=== PATIENT | male | born 1970 | race American Indian/Alaskan Native ===

== ENCOUNTER 2021-02-03 12:44 | Inpatient (IN) | payer MEDICARE ==
[2021-02-03] MEDS ORDERED: VANCOMYCIN 1,750 MG in SODIUM CHLORIDE 0.9% 500 ML 500 ML IV ONE (13:15)
[2021-02-03] MEDS ORDERED: SODIUM CHLORIDE 0.9% 1000 ML IV SOLN IV ONE (13:15)
[2021-02-03] MEDS ORDERED: CEFEPIME/NS 2 GM/100 ML 2 GM/100 ML BAG IV ONE (13:15)
[2021-02-03] MEDS ORDERED: PANTOPRAZOLE 40 MG INJ IV ONE (13:19)
--- NOTE | 2021-02-03 13:24 | Emergency Department Report ---
ED Fever HPI - General Chief Complaint: GI Bleed Stated Complaint: POSS SEPSIS PUI?: Yes Time Seen by Provider: 02/03/21 13:08 Source: EMS Exam Limitations: language barrier - History of Present Illness Initial Comments: CC: black emesis HPI: hx obtained from EMS THis is a 50 yo male with hx of CVA, HTN, schizophrenia, chronic hiccups, developmental delay who presents with black emesis from personal fpc. Due to baseline mental status, patient gives limited hx. Black emesis began yesterday. Patient was too weak to walk for the past 2 days. EMS noted patient to be febrile 102 F, oxygen saturation 91% RA. On arrival patient is hypotensive 88/62 Patient is minimally verbal at baseline. According to documentation provided to EMS patient was admitted January 16, 2021 at [facility] Hx obtained from caregiver at [facility] Ninfa [phone] Patient has been a resident of [facility] since October 2020. I obtained history from Dr. Briggs tax examiner. He had access to patient's record at [facility]. He underwent EGD which diagnosed esophagitis during recent hospitalization. Fever Severity/Quality: greater than 102 F Associated Symptoms: other (black emesis) ED Review of Systems ROS: Stated complaint: POSS SEPSIS Other details as noted in HPI Comment: Unobtainable due to pts medical conditions (patient has minimal language capacity, critically ill) ED Past Medical Hx - Past Medical History Previous Medical History?: Yes Hx Hypertension: Yes Hx CVA: Yes Hx Psychiatric Treatment: Yes Additional medical history: schizophrenia - Social History Smoking Status: Never Smoker ED Physical Exam - General Limitations: No Limitations General appearance: lethargic, other (appears ill, makes eye contact, constant hiccups) - Head Head exam: Present: atraumatic, normocephalic - Eye Eye exam: Present: normal appearance - ENT ENT exam: Present: mucous membranes dry - Neck Neck exam: Present: normal inspection, full ROM - Respiratory Respiratory exam: Present: decreased breath sounds, other (rapid breathing). A bsent: wheezes, rales, rhonchi, stridor - Cardiovascular Cardiovascular Exam: Present: normal rhythm, tachycardia, normal heart sounds. Absent: systolic murmur, diastolic murmur, rubs, gallop - GI/Abdominal GI/Abdominal exam: Present: soft, normal bowel sounds. Absent: distended, tenderness, guarding, rebound - Rectal Rectal exam: Present: heme (+) stool (light brown stool) - Extremities Exam Extremities exam: Present: normal inspection - Neurological Exam Neurological exam: Present: altered - Psychiatric Psychiatric exam: Present: flat affect - Skin Skin exam: Present: dry, intact, normal color, other (hot to touch). Absent: rash ED Course Vital Signs 02/03/21 02/03/21 02/03/21 13:00 13:12 13:16 Temperature 102.8 F H Pulse Rate 111 H 118 H Respiratory 24 23 Rate Blood Pressure 90/64 96/63 O2 Sat by Pulse 99 99 Oximetry 02/03/21 02/03/21 13:30 13:46 Temperature Pulse Rate 115 H 115 H Respiratory 19 21 Rate Blood Pressure 96/63 96/63 O2 Sat by Pulse 90 97 Oximetry ED Medical Decision Making - Lab Data Result diagrams: 02/03/21 13:22 02/03/21 13:22 - Radiology Data Radiology results: report reviewed Patient Name: RADHA INMAN Gender: Male Date of : 1970 Home Phone: Referring Provider: DEMIAN SHAW Organization: [facility] Accession Number: [id number] Requested Date: February 03, 2021 13:16 Report Status: Final Requested Procedure: 1 Procedure Description: XR chest 1V ap Modality: XR Findings Reporting MD: Javi Franco Dictation Time: February 03, 2021 12:46 Manufacturing Engineer Machining: Not available Director Of Health Education Date: CHEST 1 VIEW INDICATION: fever hypoxia. COMPARISON: None FINDINGS: Support devices: None. Heart: Within normal limits. Lungs/Pleura: Subtle right perihilar infiltration is identified concerning for early pneumonia. The left lung is clear. No pleural effusion or pneumothorax. Additional findings: None. IMPRESSION: Early right lung pneumonia is suspected. Signer Name: Javi Franco Jr, MD Signed: 02/03/2021 12:46 PM Workstation Name: [id number] - Medical Decision Making 1. Septic shock: Patient presented with fever hypoxia, chest radiograph reveals right lower lobe infiltrate, broad-spectrum antibiotics to cover for HCAP including IV cefepime IV vancomycin considering recent hospitalization in personal fpc setting. 30 ml per kg normal saline bolus according to sepsis protocol. Blood pressure normalized after IVF resuscitation 2. Esophagitis history of black emesis, light brown Hemoccult positive stool without vomiting blood in the ED 3. Chronic hiccups: Present today unclear etiology. Patient is admitted to hospital service Critical Care Time: Yes Critical care time in (mins) excluding proc time.: 40 Critical care attestation.: If time is entered above; I have spent that time in minutes in the direct care of this critically ill patient, excluding procedure time. 40 minutes of critical care time excluding procedures were used in the care of the patient. I came immediately to the bedside upon patient's arrival. I obtained history from EMS at the bedside. I discussed treatment plan with the nursing team members. I reviewed electronic record. Patient required multiple interventions and reassessments. ED Disposition Clinical Impression: Septic shock, HCAP (healthcare-associated pneumonia), Esophagitis determined by endoscopy, Chronic hiccups Disposition: ADMITTED INPATIENT Is pt being admited?: Yes Condition: Fair Instructions: Bacterial Pneumonia (ED) Referrals: PRIMARY CARE, [Primary Care Provider] - 3-5 Days Forms: Accompanied Note
[2021-02-03 13:45] LABS: Hematocrit 37.5 % (35.5-45.6); Hemoglobin 12.4 gm/dl (11.8-15.2); Lymphocytes # (Auto) 0.2 K/mm3 (1.2-5.4); Lymphocytes % (Auto) 1.9 % (13.4-35.0); Mean Corpuscular HGB Conc 33 % (32-34); Mean Corpuscular Volume 85 fl (84-94); Monocytes % (Auto) 9.9 % (0.0-7.3); Platelet Count 263 K/mm3 (140-440); Red Blood Count 4.42 M/mm3 (3.65-5.03); Red Cell Distribution Width 15.5 % (13.2-15.2)
--- NOTE | 2021-02-03 13:50 | XRay Report ---
CHEST 1 VIEW INDICATION: fever hypoxia. COMPARISON: None FINDINGS: Support devices: None. Heart: Within normal limits. Lungs/Pleura: Subtle right perihilar infiltration is identified concerning for early pneumonia. The l eft lung is clear. No pleural effusion or pneumothorax. Additional findings: None. IMPRESSION: Early right lung pneumonia is suspected. Signer Name: Javi Franco Jr, MD Signed: 02/03/2021 1:46 PM Workstation Name: [id number]
[2021-02-03] MEDS ORDERED: VANCOMYCIN PHARMACY TO DOSE IV SCH (14:00)
[2021-02-03 14:12] LABS: Alanine Aminotransferase 14 units/L (7-56); Albumin 2.9 g/dL (3.9-5); BUN/Creatinine Ratio 10; Blood Urea Nitrogen 9 mg/dL (9-20); Calcium 8.1 mg/dL (8.4-10.2); Hemolysis Index 2
[2021-02-03 15:07] LABS: INR 1.28 (0.87-1.13)
[2021-02-03 15:08] LABS: Partial Thromboplastin Time 26.9 Sec. (24.2-36.6)
[2021-02-03] MEDS ORDERED: HYDROmorphone 1 MG/1 ML INJ IV PRN ×2 (16:09→17:00)
[2021-02-03] MEDS ORDERED: ACETAMINOPHEN 325 MG TAB PO PRN ×2 (16:09→16:12)
[2021-02-03] MEDS ORDERED: oxyCODONE /ACETAMINOPHEN 5-325MG TAB PO PRN (16:09)
[2021-02-03] MEDS ORDERED: ALBUTEROL 2.5 MG/3 ML NEBU IH PRN (16:09)
--- NOTE | 2021-02-03 16:09 | History and Physical Report ---
History of Present Illness Chief complaint: He has gotten weak History of present illness: 50 YO Male Personal Long Term Resident with Developmental, HTN, CVA, Schizophrenia, Esophagitis presents ED for evaluation. Patient has diminished cognition and is unable to provide detailed history. Patient history taken from EMS staff, ED staff, as well as personal care attendant. As per caregiver the patient has experienced generalized weakness over the past 2 days as well as multiple episodes of emesis over the past 24 hours. EMS was notified and upon arrival the patient was found to be in distress and subsequent transported to [facility] for further care and evaluation of the aforementioned symptoms. The patient was seen and evaluated in the emergency department. All lab and imaging studies reviewed. The patient was found to be febrile with a temperature of 102.8 F, tachycardia with a heart rate in the 120s a systolic blood pressure in the 80s as well as a pulse oximetry of 88% on room air. The patient was found to have sepsis secondary to pneumonia. Patient admitted to medical floor and initiated on sepsis protocol as well as pneumonia protocol, and coronavirus protocol. Patient has diminished cognition at the time my evaluation but has a positive gag reflex and is able to protect his airway without difficulty. No further history is obtainable. No prior admission for review. No medication listed at time of admission reconciliation. Advanced care planning conducted in ED. Past History Past Medical History: hypertension, stroke Past Surgical History: No surgical history, Other (Reviewed) Social history: single. denies: smoking, alcohol abuse, prescription drug abuse Family history: diabetes, hypertension Medications and Allergies Allergies Allergy/AdvReac Type Severity Reaction Status Date / Time No Known Allergies Allergy Verified 02/03/21 13:13 Review of Systems ROS unobtainable: due to mental status Exam - Constitutional Vitals: Temp Pulse Resp BP Pulse Ox 102.8 F H 115 H 21 96/63 97 02/03/21 13:12 02/03/21 13:46 02/03/21 13:46 02/03/21 13:46 02/03/21 13:46 General appearance: Present: mild distress - EENT Eyes: Present: PERRL ENT: hearing intact, clear oral mucosa - Neck Neck: Present: supple, normal ROM - Respiratory Respiratory effort: labored Respiratory: bilateral: diminished, rhonchi - Cardiovascular Rhythm: other (Tachycardia) Heart Sounds: Present: S1 & S2. Absent: rub, click - Extremities Extremities: pulses symmetrical, No edema Peripheral Pulses: abnormal (Capillary refill greater than 3.5 seconds) - Abdominal General gastrointestinal: Present: soft, non-tender, non-distended, normal bowel sounds Male genitourinary: Present: normal - Integumentary Integumentary: Present: clear, dry, clammy, decreased turgor - Musculoskeletal Musculoskeletal: generalized weakness - Psychiatric Psychiatric: no appropriate mood/affect, no intact judgment & insight, no memory intact - Neurologic Neurologic: CNII-XII intact, moves all extremities, no gait normal Results - Labs CBC & Chem 7: 02/03/21 13:22 02/03/21 13:22 Labs: Abnormal lab results 02/03/21 02/03/21 02/03/21 Range/Units 13:22 13:22 14:46 RDW 15.5 H (13.2-15.2) % Lymph % (Auto) 1.9 L (13.4-35.0) % [place] % (Auto) 9.9 H (0.0-7.3) % Lymph # (Auto) 0.2 L (1.2-5.4) K/mm3 [place] # (Auto) 1.0 H (0.0-0.8) K/mm3 Seg Neutrophils % 88.2 H (40.0-70.0) % Seg Neutrophils # 9.2 H (1.8-7.7) K/mm3 PT 16.5 H (12.2-14.9) Sec. INR 1.28 H (0.87-1.13) Calcium 8.1 L (8.4-10.2) mg/dL AST 109 H (5-40) units/L Albumin 2.9 L (3.9-5) g/dL Assessment and Plan - Patient Problems (1) Sepsis Current Visit: Yes Status: Acute Qualifiers: Acute respiratory failure type: with hypoxia Plan to address problem: Sepsis protocol: CBC, CMP, IV fluid resuscitation therapy, IV antibiotic therapy, supplemental oxygen, pulse oximetry, monitor urine output every shift, monitor fluid balance, maintain mean arterial pressure greater than or equal to 65, blood culture, serial lactic acid level, (2) Pneumonia Current Visit: Yes Status: Acute Plan to address problem: Pneumonia protocol: Chest x-ray, CBC, CMP, IV antibiotic therapy, supplemental oxygen, pulse oximetry, nebulizer therapy, (3) Suspected 2019 novel coronavirus infection Current Visit: Yes Status: Acute Plan to address problem: Coronavirus protocol: IV antibiotic therapy, IV steroid therapy, supplemental oxygen, pulse oximetry, vitamin C therapy, vitamin D therapy, zinc therapy, prophylactic anticoagulation. (4) Acute respiratory failure with hypoxia Current Visit: Yes Status: Acute Plan to address problem: Supplemental oxygen, pulse oximetry, nebulizer therapy, will consider high flow supplemental oxygen if patient is unable to maintain pulse oximetry with oxygen via nasal cannula. (5) DVT prophylaxis Current Visit: Yes Status: Acute Plan to address problem: SCD to bilateral lower extremities while in bed, prophylactic anticoagulation (6) Advance care planning Current Visit: Yes Status: Acute Plan to address problem: Disease education conducted, care plan discussed, diagnosis discussed, prognosis discussed, patient is full code, patient caregiver acknowledges understanding agreement with care plan, +30 minutes.
[2021-02-03 17:53] LABS: C-Reactive Protein 14.1 mg/dL (0.00-1.30)
[2021-02-03] MEDS: CEFEPIME/NS 2 GM/100 ML 2 GM/100 ML BAG IV SCH (23:02)
[2021-02-03] MEDS: methylPREDNISolone Sod Succinate 40 MG/1 ML INJ IV SCH (23:04)
[2021-02-03] MEDS: HEPARIN 5,000 UNIT/1 ML VIAL SUB-Q SCH (23:04)
[2021-02-03] MEDS: ASCORBIC ACID 500 MG TAB PO SCH (23:36)
[2021-02-03] MEDS: ZINC SULFATE 220 MG CAP PO SCH (23:37)
[2021-02-04] MEDS: CEFEPIME/NS 2 GM/100 ML 2 GM/100 ML BAG IV SCH ×2 (05:26→16:32)
[2021-02-04] MEDS: methylPREDNISolone Sod Succinate 40 MG/1 ML INJ IV SCH ×2 (05:26→13:48)
[2021-02-04 06:43] LABS: Basophils % (Auto) 0.1 % (0.0-1.8); Hematocrit 35.3 % (35.5-45.6); Hemoglobin 11.6 gm/dl (11.8-15.2); Lymphocytes # (Auto) 0.8 K/mm3 (1.2-5.4); Lymphocytes % (Auto) 8.7 % (13.4-35.0); Mean Corpuscular HGB Conc 33 % (32-34); Mean Corpuscular Volume 84 fl (84-94); Monocytes % (Auto) 10.9 % (0.0-7.3); Platelet Count 263 K/mm3 (140-440); Red Cell Distribution Width 15.4 % (13.2-15.2)
[2021-02-04 06:56] LABS: BUN/Creatinine Ratio 10; Blood Urea Nitrogen 8 mg/dL (9-20); Calcium 7.9 mg/dL (8.4-10.2); Hemolysis Index 0
[2021-02-04] MEDS: ASCORBIC ACID 500 MG TAB PO SCH (13:49)
[2021-02-04] MEDS: ZINC SULFATE 220 MG CAP PO SCH (13:49)
[2021-02-04] MEDS: HEPARIN 5,000 UNIT/1 ML VIAL SUB-Q SCH (13:56)
[2021-02-04] MEDS: CHOLECALCIFEROL (VIT D3) 400 UNIT TAB PO SCH (16:50)
[2021-02-04] MEDS: PROCHLORPERAZINE MALEATE 10 MG TAB PO PRN (16:55)
[2021-02-05] MEDS: methylPREDNISolone Sod Succinate 40 MG/1 ML INJ IV SCH ×4 (00:02→22:00)
[2021-02-05] MEDS: HEPARIN 5,000 UNIT/1 ML VIAL SUB-Q SCH ×3 (00:03→22:02)
[2021-02-05] MEDS: ASCORBIC ACID 500 MG TAB PO SCH ×3 (00:31→22:00)
[2021-02-05] MEDS: ZINC SULFATE 220 MG CAP PO SCH ×3 (00:32→22:00)
[2021-02-05] MEDS: METOCLOPRAMIDE 10 MG/2 ML INJ IV PRN (00:57)
[2021-02-05] MEDS: CEFEPIME/NS 2 GM/100 ML 2 GM/100 ML BAG IV SCH ×4 (01:06→23:25)
--- NOTE | 2021-02-05 11:30 | Progress Note ---
Assessment and Plan --Sepsis due to pneumonia Presented with fever tachycardia tachypnea and right sided pneumonia Sepsis protocol: CBC, CMP, IV fluid resuscitation therapy, IV antibiotic therapy, supplemental oxygen, pulse oximetry, monitor urine output every shift, monitor fluid balance, maintain mean arterial pressure greater than or equal to 65, blood culture, serial lactic acid level, -- Pneumonia IV antibiotic therapy, supplemental oxygen, pulse oximetry, nebulizer therapy, -- Suspected 2019 novel coronavirus infection Pending test Coronavirus protocol: supplemental oxygen, pulse oximetry, vitamin C therapy, vitamin D therapy, zinc therapy, prophylactic anticoagulation. --Acute respiratory failure with hypoxia Likely due to underlying pneumonia Supplemental oxygen, pulse oximetry, nebulizer therapy, will consider high flow supplemental oxygen if patient is unable to maintain pulse oximetry with oxygen via nasal cannula. --History of developmental delay , supportive care --HTN, CVA: Continue home meds --History of schizophrenia, psych consulted --Hiccups, ordered for Compazine -- DVT prophylaxis SCD to bilateral lower extremities while in bed, prophylactic anticoagulation --Full CODE STATUS Brief clinical course: 02/04/21: Covid test result pending, continue to follow clinically. Continue em piric antibiotics Subjective Date of service: 02/04/21 Interval history: Patient seen and examined. Medical records and medication list reviewed. No acute event overnight noted by the RN. Patient on supplemental O2, continue to have hiccups Discussed plan of care at bedside with patient's RN. Objective - Exam Narrative Exam: GENERAL: well-developed and well-nourished -[place]kin[place] male lying on bed appeared to have continuous hiccups HEENT: Normocephalic. Atraumatic. No conjunctival congestion or icterus. Patient has moist mucous membranes. NECK: Supple. Trachea midline. CHEST/LUNGS: Coarse breath sounds auscultated bilaterally, breathing nonlabored. No wheezes crackles or rhonchi. HEART/CARDIOVASCULAR: Regular in rate and rhythm. S1 and S2 positive. ABDOMEN: Abdomen is soft, nontender. Patient has normal bowel sounds. SKIN: There is no rash. Warm and dry. NEURO: Does not follow command, confused MUSCULOSKELETAL: No joint effusion or tenderness. EXTRIMITY: No edema, no cyanosis or clubbing. PSYCH: Cooperative. - Constitutional Vitals: Vital Signs - 12hr 02/05/21 05:02 Temperature 98.0 F Pulse Rate 107 H Respiratory 18 Rate Blood Pressure 127/84 O2 Sat by Pulse 95 Oximetry - Labs CBC & Chem 7: 02/08/21 13:46 02/08/21 13:46
[2021-02-05] MEDS ORDERED: POTASSIUM CHLORIDE ER 20 MEQ TAB PO NR (12:00)
[2021-02-05] MEDS: CHOLECALCIFEROL (VIT D3) 1000 UNIT (25 mcg) TAB PO SCH (22:02)
[2021-02-05] MEDS: CHOLECALCIFEROL (VIT D3) 400 UNIT TAB PO SCH (22:11)
[2021-02-06] MEDS: METOCLOPRAMIDE 10 MG/2 ML INJ IV PRN ×3 (04:16→22:23)
[2021-02-06] MEDS: CEFEPIME/NS 2 GM/100 ML 2 GM/100 ML BAG IV SCH ×2 (04:22→14:59)
[2021-02-06] MEDS: methylPREDNISolone Sod Succinate 40 MG/1 ML INJ IV SCH ×3 (05:16→22:23)
[2021-02-06 08:57] LABS: Blood Urea Nitrogen 13 mg/dL (9-20); Calcium 8.3 mg/dL (8.4-10.2); Hemolysis Index 9
[2021-02-06 08:59] LABS: BUN/Creatinine Ratio 26
[2021-02-06] MEDS: HEPARIN 5,000 UNIT/1 ML VIAL SUB-Q SCH ×2 (09:07→22:23)
[2021-02-06] MEDS: CHOLECALCIFEROL (VIT D3) 1000 UNIT (25 mcg) TAB PO SCH (09:07)
[2021-02-06] MEDS: ASCORBIC ACID 500 MG TAB PO SCH ×2 (09:07→22:23)
[2021-02-06] MEDS: ZINC SULFATE 220 MG CAP PO SCH ×2 (09:07→22:23)
[2021-02-06] MEDS: ONDANSETRON 4 MG/2 ML INJ IV PRN (09:17)
[2021-02-06] MEDS: PROCHLORPERAZINE MALEATE 10 MG TAB PO PRN (10:30)
[2021-02-06] MEDS: CEFEPIME 2 GM in SODIUM CHLORIDE 0.9% 100 ML IV SCH ×2 (10:30→17:20)
--- NOTE | 2021-02-06 12:38 | Progress Note ---
Assessment and Plan --Sepsis due to pneumonia Presented with fever tachycardia tachypnea and right sided pneumonia Sepsis protocol: CBC, CMP, IV fluid resuscitation therapy, IV antibiotic therapy, supplemental oxygen, pulse oximetry, monitor urine output every shift, monitor fluid balance, maintain mean arterial pressure greater than or equal to 65, blood culture, serial lactic acid level, -- Pneumonia IV antibiotic therapy, supplemental oxygen, pulse oximetry, nebulizer therapy, -- Suspected 2019 novel coronavirus infection Pending test Coronavirus protocol: supplemental oxygen, pulse oximetry, vitamin C therapy, vitamin D therapy, zinc therapy, prophylactic anticoagulation. --Acute respiratory failure with hypoxia Likely due to underlying pneumonia Supplemental oxygen, pulse oximetry, nebulizer therapy, will consider high flow supplemental oxygen if patient is unable to maintain pulse oximetry with oxygen via nasal cannula. --History of developmental delay , supportive care --HTN, CVA: Continue home meds --History of schizophrenia, psych consulted --Hiccups, ordered for Compazine -- DVT prophylaxis SCD to bilateral lower extremities while in bed, prophylactic anticoagulation --Full CODE STATUS Brief clinical course: 02/04/21: Covid test result pending, continue to follow clinically. Continue em piric antibiotics 02/05/21: Test is negative, continue to treat for right-sided pneumonia -aspiration versus community-acquired. Patient remains on 4 L nasal cannula O2. Continue empiric antibiotics and wean off from O2 as tolerated. Patient continues to have hiccups, encouraged RN to give the medications properly. Also assess for aspiration. Subjective Date of service: 02/05/21 Interval history: Patient seen and examined. Medical records and medication list reviewed. No acute event overnight noted by the RN. Patient on supplemental O2, continue to have hiccups Discussed plan of care at bedside with patient's RN. Objective - Exam Narrative Exam: GENERAL: well-developed and well-nourished -[place] male lying on bed appeared to have continuous hiccups HEENT: Normocephalic. Atraumatic. No conjunctival congestion or icterus. Patient has moist mucous membranes. NECK: Supple. Trachea midline. CHEST/LUNGS: Coarse breath sounds auscultated bilaterally, breathing nonlabored. No wheezes crackles or rhonchi. HEART/CARDIOVASCULAR: Regular in rate and rhythm. S1 and S2 positive. ABDOMEN: Abdomen is soft, nontender. Patient has normal bowel sounds. SKIN: There is no rash. Warm and dry. NEURO: Does not follow command, confused MUSCULOSKELETAL: No joint effusion or tenderness. EXTRIMITY: No edema, no cyanosis or clubbing. PSYCH: Cooperative. - Constitutional Vitals: Vital Signs - 12hr 02/06/21 02/06/21 02/06/21 04:35 10:00 11:30 Temperature 98.9 F 97.9 F Pulse Rate 100 H 92 H Respiratory 18 22 Rate Blood Pressure 109/65 96/60 O2 Sat by Pulse 92 96 97 Oximetry - Labs CBC & Chem 7: 02/08/21 13:46 02/08/21 13:46 Labs: Abnormal lab results 02/06/21 Range/Units 08:12 Creatinine 0.5 L (0.8-1.3) mg/dL Glucose 139 H (75-100) mg/dL Calcium 8.3 L (8.4-10.2) mg/dL
--- NOTE | 2021-02-06 13:02 | Progress Note ---
Assessment and Plan (1) Sepsis Current Visit: Yes Status: Acute Qualifiers: Acute respiratory failure type: with hypoxia Plan to address problem: Presented with fever tachycardia tachypnea and right sided pneumonia Sepsis protocol: CBC, CMP, IV fluid resuscitation therapy, IV antibiotic therapy, supplemental oxygen, pulse oximetry, monitor urine output every shift, monitor fluid balance, maintain mean arterial pressure greater than or equal to 65, blood culture, serial lactic acid level, (2) Pneumonia Current Visit: Yes Status: Acute Plan to address problem: Pneumonia protocol: Chest x-ray, CBC, CMP, IV antibiotic therapy, supplemental oxygen, pulse oximetry, nebulizer therapy, (3) Suspected 2019 novel coronavirus infection Current Visit: Yes Status: Acute Plan to address problem: Coronavirus protocol: IV antibiotic therapy, IV steroid therapy, supplemental oxygen, pulse oximetry, vitamin C therapy, vitamin D therapy, zinc therapy, prophylactic anticoagulation. (4) Acute respiratory failure with hypoxia Current Visit: Yes Status: Acute Plan to address problem: Supplemental oxygen, pulse oximetry, nebulizer therapy, will consider high flow supplemental oxygen if patient is unable to maintain pulse oximetry with oxygen via nasal cannula. (5) DVT prophylaxis Current Visit: Yes Status: Acute Plan to address problem: SCD to bilateral lower extremities while in bed, prophylactic anticoagulation (6) Advance care planning Current Visit: Yes Status: Acute Plan to address problem: Disease education conducted, care plan discussed, diagnosis discussed, prognosis discussed, patient is full code, patient caregiver acknowledges understanding agreement with care plan, +30 minutes. Brief clinical course: 02/05/21: Covid test result pending, continue to follow clinically 02/06/21: Test is negative, continue to treat for right-sided pneumonia - aspiration versus community-acquired. Patient remains on 4 L nasal cannula O2. Continue empiric antibiotics and wean off from O2 as tolerated Subjective Date of service: 02/06/21 Objective - Constitutional Vitals: Vital Signs - 12hr 02/06/21 02/06/21 02/06/21 04:35 10:00 11:30 Temperature 98.9 F 97.9 F Pulse Rate 100 H 92 H Respiratory 18 22 Rate Blood Pressure 109/65 96/60 O2 Sat by Pulse 92 96 97 Oximetry - Labs CBC & Chem 7: 02/04/21 05:11 02/06/21 08:12 Labs: Abnormal lab results 02/06/21 Range/Units 08:12 Creatinine 0.5 L (0.8-1.3) mg/dL Glucose 139 H (75-100) mg/dL Calcium 8.3 L (8.4-10.2) mg/dL
--- NOTE | 2021-02-06 13:05 | Progress Note ---
Assessment and Plan --Sepsis due to pneumonia Presented with fever tachycardia tachypnea and right sided pneumonia Sepsis protocol: CBC, CMP, IV fluid resuscitation therapy, IV antibiotic therapy, supplemental oxygen, pulse oximetry, monitor urine output every shift, monitor fluid balance, maintain mean arterial pressure greater than or equal to 65, blood culture, serial lactic acid level, -- Pneumonia IV antibiotic therapy, supplemental oxygen, pulse oximetry, nebulizer therapy, -- Suspected 2019 novel coronavirus infection Pending test Coronavirus protocol: supplemental oxygen, pulse oximetry, vitamin C therapy, vitamin D therapy, zinc therapy, prophylactic anticoagulation. --Acute respiratory failure with hypoxia Likely due to underlying pneumonia Supplemental oxygen, pulse oximetry, nebulizer therapy, will consider high flow supplemental oxygen if patient is unable to maintain pulse oximetry with oxygen via nasal cannula. --History of developmental delay , supportive care --HTN, CVA: Continue home meds --History of schizophrenia, psych consulted --Hiccups, ordered for Compazine --Elevated D-dimer on admission, will order for CTA chest as patient persistently remained hypoxic without any underlying history of COPD or lung d isease. -- DVT prophylaxis SCD to bilateral lower extremities while in bed, prophylactic anticoagulation --Full CODE STATUS Brief clinical course: 02/04/21: Covid test result pending, continue to follow clinically. Continue empiric antibiotics 02/05/21: Test is negative, continue to treat for right-sided pneumonia - aspiration versus community-acquired. Patient remains on 4 L nasal cannula O2. Continue empiric antibiotics and wean off from O2 as tolerated. Patient continues to have hiccups, encouraged RN to give the medications properly. Also assess for aspiration. 02/06/21; patient remains hypoxic on room air, continue empiric antibiotic for antibiotic coverage, order CTA chest for elevated D-dimer. Wean off O2 as tolerated Subjective Date of service: 02/06/21 Interval history: Patient seen and examined. Medical records and medication list reviewed. No acute event overnight noted by the RN. Patient on supplemental O2, hiccups slightly improved Discussed plan of care at bedside with patient's RN. Objective - Exam Narrative Exam: GENERAL: well-developed and well-nourished -[place]istani male lying on bed HEENT: Normocephalic. Atraumatic. No conjunctival congestion or icterus. Patient has moist mucous membranes. NECK: Supple. Trachea midline. CHEST/LUNGS: Coarse breath sounds auscultated bilaterally, breathing nonlabored. No wheezes crackles or rhonchi. HEART/CARDIOVASCULAR: Regular in rate and rhythm. S1 and S2 positive. ABDOMEN: Abdomen is soft, nontender. Patient has normal bowel sounds. SKIN: There is no rash. Warm and dry. NEURO: Does not follow command, confused MUSCULOSKELETAL: No joint effusion or tenderness. EXTRIMITY: No edema, no cyanosis or clubbing. PSYCH: Cooperative. - Constitutional Vitals: Vital Signs - 12hr 02/06/21 02/06/21 02/06/21 04:35 10:00 11:30 Temperature 98.9 F 97.9 F Pulse Rate 100 H 92 H Respiratory 18 22 Rate Blood Pressure 109/65 96/60 O2 Sat by Pulse 92 96 97 Oximetry - Labs CBC & Chem 7: 02/08/21 13:46 02/08/21 13:46 Labs: Abnormal lab results 02/06/21 Range/Units 08:12 Creatinine 0.5 L (0.8-1.3) mg/dL Glucose 139 H (75-100) mg/dL Calcium 8.3 L (8.4-10.2) mg/dL
--- NOTE | 2021-02-06 16:17 | Cat Scan Report ---
CTA CHEST WITH IV CONTRAST INDICATION: possible PE. TECHNIQUE: Axial CT images were obtained through the chest after injection of 100 mm Omnipaque 350 IV contrast. 3 plane MIP reconstructions were produced. All CT scans at this location are performed using CT dose reduction for ALARA by means of automated exposure control. COMPARISON: None available. FINDINGS: Pulmonary Arteries: There are small pulmonary emboli in the segmental branches in the lingula and lef t lower lobe in the left lung. No definite right-sided emboli are identified. Lungs: Dependent opacities in the right lung could reflect aspiration atelectasis, or developing pneu monia. Trachea and Bronchi: No significant abnormality. Heart and Pericardium: No significant abnormality. Vasculature: No significant abnormality. Lymphatics: No lymphadenopathy. Additional Findings: None. Upper Abdomen: No acute findings. Skeletal Structures: No acute findings or aggressive bone lesions. IMPRESSION: 1. Small pulmonary emboli in the lingula and left lower lobe segmental branches. 2. Dependent opacities in the right lung could reflect aspiration, atelectasis, or developing pneumon ia. Message was left with the hospitalist answering service at 3:15 PM central time on 02/06/2021. Signer Name: Calvin Khan MD Signed: 02/06/2021 4:12 PM Workstation Name: [id number]
[2021-02-07] MEDS: CEFEPIME 2 GM in SODIUM CHLORIDE 0.9% 100 ML IV SCH ×3 (03:29→18:54)
[2021-02-07] MEDS: ONDANSETRON 4 MG/2 ML INJ IV PRN (03:41)
[2021-02-07] MEDS ORDERED: D5W/0.45% NACL 1,000 ML IV SCH (04:00)
[2021-02-07] MEDS: methylPREDNISolone Sod Succinate 40 MG/1 ML INJ IV SCH ×3 (05:09→22:00)
[2021-02-07] MEDS: ASCORBIC ACID 500 MG TAB PO SCH ×2 (10:38→21:59)
[2021-02-07] MEDS: CHOLECALCIFEROL (VIT D3) 1000 UNIT (25 mcg) TAB PO SCH (10:39)
[2021-02-07] MEDS: ZINC SULFATE 220 MG CAP PO SCH ×2 (10:39→22:00)
[2021-02-07] MEDS: ENOXAPARIN 100 MG/1 ML INJ SUB-Q SCH ×2 (10:41→21:59)
--- NOTE | 2021-02-07 16:01 | Fluoroscopy Report ---
MODIFIED BARIUM SWALLOW INDICATION: swallowing evaluation TECHNIQUE: Swallowing was evaluated in the lateral position under direct fluoroscopy. FINDINGS: The patient was evaluated with thin liquids and puree consistencies. No aspiration or penetration was witnessed. Mild vallecular and piriform sinus residuals were noted w ith both consistencies which partially cleared with additional swallows. IMPRESSION: No evidence for aspiration. Mild residuals as described. Fluoroscopic time: 1.4 minutes Number of fluoroscopic images: 2 Signer Name: Javi Franco Jr, MD Signed: 02/07/2021 3:57 PM Workstation Name: [id number]
--- NOTE | 2021-02-07 17:07 | Progress Note ---
Assessment and Plan --Sepsis due to pneumonia Presented with fever tachycardia tachypnea and right sided pneumonia Sepsis protocol: CBC, CMP, IV fluid resuscitation therapy, IV antibiotic therapy, supplemental oxygen, pulse oximetry, monitor urine output every shift, monitor fluid balance, maintain mean arterial pressure greater than or equal to 65, blood culture, serial lactic acid level, -- Pneumonia IV antibiotic therapy, supplemental oxygen, pulse oximetry, nebulizer therapy, -- Suspected 2019 novel coronavirus infection Pending test Coronavirus protocol: supplemental oxygen, pulse oximetry, vitamin C therapy, vitamin D therapy, zinc therapy, prophylactic anticoagulation. --Acute respiratory failure with hypoxia Likely due to underlying pneumonia and acute PE Supplemental oxygen, pulse oximetry, nebulizer therapy, will consider high flow supplemental oxygen if patient is unable to maintain pulse oximetry with oxygen via nasal cannula. --History of developmental delay , supportive care --HTN, CVA: Continue home meds --History of schizophrenia, psych consulted --Hiccups, ordered for Compazine --Acute right lung Elevated D-dimer on admission, CT suggestive for PE, initiated on therapeutic anticoagulation -- DVT prophylaxis SCD to bilateral lower extremities while in bed, therapeutic anticoagulation --Full CODE STATUS Brief clinical course: 02/04/21: Covid test result pending, continue to follow clinically. Continue empiric antibiotics 02/05/21: Test is negative, continue to treat for right-sided pneumonia - aspiration versus community-acquired. Patient remains on 4 L nasal cannula O2. Continue empiric antibiotics and wean off from O2 as tolerated. Patient continues to have hiccups, encouraged RN to give the medications properly. Also assess for aspiration. 02/06/21; patient remains hypoxic on room air, continue empiric antibiotic for antibiotic coverage, order CTA chest for elevated D-dimer. Wean off O2 as tolerated 02/07/21: acute PE on CT chest_ initiated on lovenox for therapeutic anticoagulation, wean off O2 as tolerated. Modified barium swallow study today showed no sign of aspiration. Discussed with RN for assisted feeding. Continue to provide supportive care. Subjective Date of service: 02/07/21 Interval history: Patient seen and examined. Medical records and medication list reviewed. No acute event overnight noted by the RN. Patient on supplemental O2, hiccups slightly improved Discussed plan of care at bedside with patient's RN. Objective - Exam Narrative Exam: GENERAL: well-developed and well-nourished -[place] male lying on bed HEENT: Normocephalic. Atraumatic. No conjunctival congestion or icterus. Patient has moist mucous membranes. NECK: Supple. Trachea midline. CHEST/LUNGS: Coarse breath sounds auscultated bilaterally, breathing nonlabored. No wheezes crackles or rhonchi. HEART/CARDIOVASCULAR: Regular in rate and rhythm. S1 and S2 positive. ABDOMEN: Abdomen is soft, nontender. Patient has normal bowel sounds. SKIN: There is no rash. Warm and dry. NEURO: Does not follow command, confused MUSCULOSKELETAL: No joint effusion or tenderness. EXTRIMITY: No edema, no cyanosis or clubbing. PSYCH: Cooperative. - Constitutional Vitals: Vital Signs - 12hr 02/07/21 02/07/21 05:39 11:31 Temperature 99.2 F 98.2 F Pulse Rate 68 81 Respiratory 20 18 Rate Blood Pressure 114/66 111/85 O2 Sat by Pulse 98 97 Oximetry - Labs CBC & Chem 7: 02/08/21 13:46 02/08/21 13:46
[2021-02-08] MEDS: CEFEPIME 2 GM in SODIUM CHLORIDE 0.9% 100 ML IV SCH ×3 (01:28→18:55)
[2021-02-08] MEDS: methylPREDNISolone Sod Succinate 40 MG/1 ML INJ IV SCH ×3 (05:42→21:38)
[2021-02-08] MEDS: ASCORBIC ACID 500 MG TAB PO SCH ×2 (12:02→21:37)
[2021-02-08] MEDS: ZINC SULFATE 220 MG CAP PO SCH ×2 (12:02→21:37)
[2021-02-08] MEDS: ENOXAPARIN 100 MG/1 ML INJ SUB-Q SCH ×2 (12:02→21:37)
[2021-02-08] MEDS: CHOLECALCIFEROL (VIT D3) 1000 UNIT (25 mcg) TAB PO SCH (12:02)
[2021-02-08] MEDS: PROCHLORPERAZINE MALEATE 10 MG TAB PO PRN (12:05)
[2021-02-08 14:21] LABS: Hematocrit 36.2 % (35.5-45.6); Hemoglobin 12.3 gm/dl (11.8-15.2); Mean Corpuscular HGB Conc 34 % (32-34); Mean Corpuscular Volume 84 fl (84-94); Platelet Count 235 K/mm3 (140-440); Red Blood Count 4.33 M/mm3 (3.65-5.03); Red Cell Distribution Width 14.7 % (13.2-15.2)
[2021-02-08 14:36] LABS: Blood Urea Nitrogen 10 mg/dL (9-20); Calcium 8.5 mg/dL (8.4-10.2); Hemolysis Index 3
[2021-02-08 16:46] LABS: BUN/Creatinine Ratio 20
[2021-02-08] MEDS: D5W/0.9% NACL 1,000 ML IV SCH (18:55)
--- NOTE | 2021-02-08 20:17 | Progress Note ---
Assessment and Plan --Sepsis due to pneumonia Presented with fever tachycardia tachypnea and right sided pneumonia Sepsis protocol: CBC, CMP, IV fluid resuscitation therapy, IV antibiotic therapy, supplemental oxygen, pulse oximetry, monitor urine output every shift, monitor fluid balance, maintain mean arterial pressure greater than or equal to 65, blood culture, serial lactic acid level, -- Pneumonia IV antibiotic therapy, supplemental oxygen, pulse oximetry, nebulizer therapy, -- Suspected 2019 novel coronavirus infection Pending test Coronavirus protocol: supplemental oxygen, pulse oximetry, vitamin C therapy, vitamin D therapy, zinc therapy, prophylactic anticoagulation. --Acute respiratory failure with hypoxia Likely due to underlying pneumonia and acute PE Supplemental oxygen, pulse oximetry, nebulizer therapy, will consider high flow supplemental oxygen if patient is unable to maintain pulse oximetry with oxygen via nasal cannula. --History of developmental delay , supportive care --HTN, CVA: Continue home meds --History of schizophrenia, psych consulted --Hiccups, ordered for Compazine --Acute right lung Elevated D-dimer on admission, CT suggestive for PE, initiated on therapeutic anticoagulation -- DVT prophylaxis SCD to bilateral lower extremities while in bed, therapeutic anticoagulation --Full CODE STATUS Brief clinical course: 02/04/21: Covid test result pending, continue to follow clinically. Continue empiric antibiotics 02/05/21: Test is negative, continue to treat for right-sided pneumonia - aspiration versus community-acquired. Patient remains on 4 L nasal cannula O2. Continue empiric antibiotics and wean off from O2 as tolerated. Patient continues to have hiccups, encouraged RN to give the medications properly. Also assess for aspiration. 02/06/21; patient remains hypoxic on room air, continue empiric antibiotic for antibiotic coverage, order CTA chest for elevated D-dimer. Wean off O2 as tolerated 02/07/21: acute PE on CT chest_ initiated on lovenox for therapeutic anticoagulation, wean off O2 as tolerated. Modified barium swallow study today showed no sign of aspiration. Discussed with RN for assisted feeding. Continue to provide supportive care. 02/08/21: Continue therapeutic anticoagulation, PT recommended SNF placement, outpatient case manager notified for SNF placement. Patient tolerating diet better Subjective Date of service: 02/08/21 Interval history: Patient seen and examined. Medical records and medication list reviewed. No acute event overnight noted by the RN. Patient on supplemental O2, hiccups getting better Discussed plan of care at bedside with patient's RN. Objective - Exam Narrative Exam: GENERAL: well-developed and well-nourished -[place] male lying on bed HEENT: Normocephalic. Atraumatic. No conjunctival congestion or icterus. Patient has moist mucous membranes. NECK: Supple. Trachea midline. CHEST/LUNGS: Coarse breath sounds auscultated bilaterally, breathing nonlabored. No wheezes crackles or rhonchi. HEART/CARDIOVASCULAR: Regular in rate and rhythm. S1 and S2 positive. ABDOMEN: Abdomen is soft, nontender. Patient has normal bowel sounds. SKIN: There is no rash. Warm and dry. NEURO: Does not follow command, confused MUSCULOSKELETAL: No joint effusion or tenderness. EXTRIMITY: No edema, no cyanosis or clubbing. PSYCH: Cooperative. - Constitutional Vitals: Vital Signs - 12hr 02/08/21 02/08/21 02/08/21 10:00 11:11 16:43 Temperature 97.7 F 98.0 F Pulse Rate 89 83 Respiratory 18 18 Rate Blood Pressure 127/80 130/85 O2 Sat by Pulse 98 97 98 Oximetry - Labs CBC & Chem 7: 02/08/21 13:46 02/08/21 13:46 Labs: Abnormal lab results 02/08/21 Range/Units 13:46 Carbon Dioxide 31 H (22-30) mmol/L Creatinine 0.5 L (0.8-1.3) mg/dL Glucose 135 H (75-100) mg/dL
[2021-02-09] MEDS: CEFEPIME 2 GM in SODIUM CHLORIDE 0.9% 100 ML IV SCH ×3 (02:24→17:38)
[2021-02-09] MEDS: methylPREDNISolone Sod Succinate 40 MG/1 ML INJ IV SCH ×3 (05:24→22:06)
[2021-02-09] MEDS: CHOLECALCIFEROL (VIT D3) 1000 UNIT (25 mcg) TAB PO SCH (11:36)
[2021-02-09] MEDS: ENOXAPARIN 100 MG/1 ML INJ SUB-Q SCH ×2 (11:36→22:05)
[2021-02-09] MEDS: ASCORBIC ACID 500 MG TAB PO SCH ×2 (11:36→22:06)
[2021-02-09] MEDS: ZINC SULFATE 220 MG CAP PO SCH ×2 (11:37→22:06)
[2021-02-09] MEDS: PROCHLORPERAZINE MALEATE 10 MG TAB PO PRN (13:32)
--- NOTE | 2021-02-09 23:59 | Progress Note ---
Assessment and Plan --Sepsis due to pneumonia Presented with fever tachycardia tachypnea and right sided pneumonia Sepsis protocol: CBC, CMP, IV fluid resuscitation therapy, IV antibiotic therapy, supplemental oxygen, pulse oximetry, monitor urine output every shift, monitor fluid balance, maintain mean arterial pressure greater than or equal to 65, blood culture, serial lactic acid level, -- Pneumonia IV antibiotic therapy, supplemental oxygen, pulse oximetry, nebulizer therapy, -- Suspected 2019 novel coronavirus infection, ruled out with a negative test --Acute respiratory failure with hypoxia Likely due to underlying pneumonia and acute PE Supplemental oxygen, pulse oximetry, nebulizer therapy, will consider high flow supplemental oxygen if patient is unable to maintain pulse oximetry with oxygen via nasal cannula. --History of developmental delay , supportive care --HTN, CVA: Continue home meds --History of schizophrenia, psych consulted --Hiccups, ordered for Compazine --Acute right lung Elevated D-dimer on admission, CT suggestive for PE, initiated on therapeutic anticoagulation -- DVT prophylaxis SCD to bilateral lower extremities while in bed, therapeutic anticoagulation --Full CODE STATUS Brief clinical course: 02/04/21: Covid test result pending, continue to follow clinically. Continue empiric antibiotics 02/05/21: Test is negative, continue to treat for right-sided pneumonia -aspira tion versus community-acquired. Patient remains on 4 L nasal cannula O2. Continue empiric antibiotics and wean off from O2 as tolerated. Patient continues to have hiccups, encouraged RN to give the medications properly. Also assess for aspiration. 02/06/21; patient remains hypoxic on room air, continue empiric antibiotic for antibiotic coverage, order CTA chest for elevated D-dimer. Wean off O2 as tolerated 02/07/21: acute PE on CT chest_ initiated on lovenox for therapeutic anticoagulation, wean off O2 as tolerated. Modified barium swallow study today showed no sign of aspiration. Discussed with RN for assisted feeding. Continue to provide supportive care. 02/08/21: Continue therapeutic anticoagulation, PT recommended SNF placement, shelter case manager notified for SNF placement. Patient tolerating diet better 02/09/21; pending SNF placement, will place on pured diet for better tolerance. Continue supportive care. Subjective Date of service: 02/09/21 Interval history: Patient seen and examined. Medical records and medication list reviewed. No acute event overnight noted by the RN. Patient on supplemental O2, hiccups getting better Discussed plan of care at bedside with patient's RN. Objective - Exam Narrative Exam: GENERAL: well-developed and well-nourished -[place] male lying on bed HEENT: Normocephalic. Atraumatic. No conjunctival congestion or icterus. Patient has moist mucous membranes. NECK: Supple. Trachea midline. CHEST/LUNGS: Coarse breath sounds auscultated bilaterally, breathing nonlabored. No wheezes crackles or rhonchi. HEART/CARDIOVASCULAR: Regular in rate and rhythm. S1 and S2 positive. ABDOMEN: Abdomen is soft, nontender. Patient has normal bowel sounds. SKIN: There is no rash. Warm and dry. NEURO: Does not follow command, confused MUSCULOSKELETAL: No joint effusion or tenderness. EXTRIMITY: No edema, no cyanosis or clubbing. PSYCH: Cooperative. - Constitutional Vitals: Vital Signs - 12hr 02/09/21 02/09/21 13:46 17:10 Temperature 98.7 F 98.2 F Pulse Rate 94 H 74 Respiratory 18 18 Rate Blood Pressure 104/74 101/63 O2 Sat by Pulse 98 97 Oximetry - Labs CBC & Chem 7: 02/08/21 13:46 02/08/21 13:46
[2021-02-10] MEDS: HYDROmorphone 1 MG/1 ML INJ IV PRN (01:12)
[2021-02-10] MEDS: ONDANSETRON 4 MG/2 ML INJ IV PRN (01:14)
[2021-02-10] MEDS: D5W/0.9% NACL 1,000 ML IV SCH ×2 (01:17→21:54)
[2021-02-10] MEDS: methylPREDNISolone Sod Succinate 40 MG/1 ML INJ IV SCH ×2 (06:05→16:08)
[2021-02-10] MEDS: ASCORBIC ACID 500 MG TAB PO SCH ×2 (09:41→21:52)
[2021-02-10] MEDS: CHOLECALCIFEROL (VIT D3) 1000 UNIT (25 mcg) TAB PO SCH (09:41)
[2021-02-10] MEDS: ENOXAPARIN 100 MG/1 ML INJ SUB-Q SCH (09:41)
[2021-02-10] MEDS: ZINC SULFATE 220 MG CAP PO SCH (09:41)
--- NOTE | 2021-02-10 14:18 | Progress Note ---
Assessment and Plan --Sepsis due to pneumonia Presented with fever tachycardia tachypnea and right sided pneumonia Sepsis protocol: CBC, CMP, IV fluid resuscitation therapy, IV antibiotic therapy, supplemental oxygen, pulse oximetry, monitor urine output every shift, monitor fluid balance, maintain mean arterial pressure greater than or equal to 65, blood culture, serial lactic acid level, -- Pneumonia IV antibiotic therapy, supplemental oxygen, pulse oximetry, nebulizer therapy, -- Suspected 2019 novel coronavirus infection, ruled out with a negative test --Acute respiratory failure with hypoxia Likely due to underlying pneumonia and acute PE Supplemental oxygen, pulse oximetry, nebulizer therapy, will consider high flow supplemental oxygen if patient is unable to maintain pulse oximetry with oxygen via nasal cannula. --History of developmental delay , supportive care --HTN, CVA: Continue home meds --History of schizophrenia, psych consulted --Hiccups, ordered for Compazine --Acute right lung Elevated D-dimer on admission, CT suggestive for PE, initiated on therapeutic anticoagulation -- DVT prophylaxis SCD to bilateral lower extremities while in bed, therapeutic anticoagulation --Full CODE STATUS Brief clinical course: 02/04/21: Covid test result pending, continue to follow clinically. Continue empiric antibiotics 02/05/21: Test is negative, continue to treat for right-sided pneumonia -aspira tion versus community-acquired. Patient remains on 4 L nasal cannula O2. Continue empiric antibiotics and wean off from O2 as tolerated. Patient continues to have hiccups, encouraged RN to give the medications properly. Also assess for aspiration. 02/06/21; patient remains hypoxic on room air, continue empiric antibiotic for antibiotic coverage, order CTA chest for elevated D-dimer. Wean off O2 as tolerated 02/07/21: acute PE on CT chest_ initiated on lovenox for therapeutic anticoagulation, wean off O2 as tolerated. Modified barium swallow study today showed no sign of aspiration. Discussed with RN for assisted feeding. Continue to provide supportive care. 02/08/21: Continue therapeutic anticoagulation, PT recommended SNF placement, case preparer and liner notified for SNF placement. Patient tolerating diet better 02/09/21; pending SNF placement, will place on pured diet for better tolerance. Continue supportive care. 02/10/21: Change Lovenox to Eliquis, pending SNF placement. Patient will level 2, discussed with case management. Tolerating diet better, noted no hiccups today. Subjective Date of service: 02/10/21 Interval history: Patient seen and examined. Medical records and medication list reviewed. No acute event overnight noted by the RN. Patient on supplemental O2, no hiccups Discussed plan of care at bedside with patient's RN. Objective - Exam Narrative Exam: GENERAL: well-developed and well-nourished -[place] male lying on bed HEENT: Normocephalic. Atraumatic. No conjunctival congestion or icterus. Patient has moist mucous membranes. NECK: Supple. Trachea midline. CHEST/LUNGS: Coarse breath sounds auscultated bilaterally, breathing nonlabored. No wheezes crackles or rhonchi. HEART/CARDIOVASCULAR: Regular in rate and rhythm. S1 and S2 positive. ABDOMEN: Abdomen is soft, nontender. Patient has normal bowel sounds. SKIN: There is no rash. Warm and dry. NEURO: Does not follow command, confused MUSCULOSKELETAL: No joint effusion or tenderness. EXTRIMITY: No edema, no cyanosis or clubbing. PSYCH: Cooperative. - Constitutional Vitals: Vital Signs - 12hr 02/10/21 02/10/21 05:52 11:39 Temperature 98.4 F 98.2 F Pulse Rate 71 84 Respiratory 19 18 Rate Blood Pressure 131/79 117/76 O2 Sat by Pulse 100 99 Oximetry - Labs CBC & Chem 7: 02/08/21 13:46 02/08/21 13:46
[2021-02-10] MEDS: APIXABAN 5 MG TAB PO SCH (21:52)
[2021-02-10 23:52] LABS: Hematocrit 33.9 % (35.5-45.6); Hemoglobin 11.4 gm/dl (11.8-15.2); Mean Corpuscular HGB Conc 34 % (32-34); Mean Corpuscular Volume 83 fl (84-94); Platelet Count 223 K/mm3 (140-440); Red Blood Count 4.09 M/mm3 (3.65-5.03); Red Cell Distribution Width 14.7 % (13.2-15.2)
[2021-02-11 00:05] LABS: INR 1.14 (0.87-1.13)
[2021-02-11 00:06] LABS: Partial Thromboplastin Time 27.2 Sec. (24.2-36.6)
[2021-02-11 05:46] LABS: Basophils % (Auto) 0.1 % (0.0-1.8); Eosinophils # (Auto) 0.1 K/mm3 (0.0-0.4); Eosinophils % (Auto) 1.1 % (0.0-4.3); Hematocrit 33.4 % (35.5-45.6); Hemoglobin 11.1 gm/dl (11.8-15.2); Lymphocytes # (Auto) 1.2 K/mm3 (1.2-5.4); Lymphocytes % (Auto) 17.7 % (13.4-35.0); Mean Corpuscular HGB Conc 33 % (32-34); Mean Corpuscular Volume 83 fl (84-94); Monocytes # (Auto) 0.8 K/mm3 (0.0-0.8); Monocytes % (Auto) 12.5 % (0.0-7.3); Platelet Count 213 K/mm3 (140-440); Red Blood Count 4.04 M/mm3 (3.65-5.03); Red Cell Distribution Width 14.9 % (13.2-15.2)
[2021-02-11 06:13] LABS: Blood Urea Nitrogen 10 mg/dL (9-20); Calcium 8.1 mg/dL (8.4-10.2); Hemolysis Index 3
[2021-02-11 06:17] LABS: BUN/Creatinine Ratio 25
--- NOTE | 2021-02-11 10:08 | Progress Note ---
Assessment and Plan - Patient Problems (1) Sepsis Current Visit: Yes Status: Acute Qualifiers: Acute respiratory failure type: with hypoxia Plan to address problem: Resolved (2) Pneumonia Current Visit: Yes Status: Acute Plan to address problem: Resolved (3) Suspected 2019 novel coronavirus infection Current Visit: Yes Status: Acute (4) Acute respiratory failure with hypoxia Current Visit: Yes Status: Acute Plan to address problem: Supplemental oxygen, pulse oximetry, nebulizer therapy, will consider high flow supplemental oxygen if patient is unable to maintain pulse oximetry with oxygen via nasal cannula. (5) DVT prophylaxis Current Visit: Yes Status: Acute Plan to address problem: SCD to bilateral lower extremities while in bed, prophylactic anticoagulation (6) Advance care planning Current Visit: Yes Status: Acute Plan to address problem: Disease education conducted, care plan discussed, diagnosis discussed, prognosis discussed, patient is full code, patient caregiver acknowledges understanding agreement with care plan, +30 minutes. Case management consulted for assistance with discharge planning. History Interval history: 50 YO Male HD #9 with sepsis status post resolution, pneumonia, acute respiratory failure. Patient medically optimized at this time. Patient pending placement. Case management consulted. No reported nursing events. Patient is at baseline level of cognition and function. Hospitalist Physical - Constitutional Vitals: Temp Pulse Resp BP Pulse Ox 99.0 F 94 H 18 120/76 93 02/10/21 22:28 02/10/21 22:28 02/10/21 22:28 02/10/21 22:28 02/10/21 23:42 General appearance: Present: mild distress - EENT Eyes: Present: PERRL, EOM intact ENT: hearing intact - Neck Neck: Present: supple - Respiratory Respiratory: bilateral: CTA - Cardiovascular Rhythm: regular Heart Sounds: Present: S1 & S2 - Extremities Extremities: no ischemia Peripheral Pulses: within normal limits - Abdominal General gastrointestinal: soft, non-tender, non-distended - Integumentary Integumentary: Present: clear, dry - Psychiatric Psychiatric: appropriate mood/affect - Neurologic Neurologic: CNII-XII intact Results - Labs CBC & Chem 7: 02/11/21 05:18 02/11/21 05:18 Labs: Laboratory Last Values WBC 6.5 K/mm3 (4.5-11.0) 02/11/21 05:18 RBC 4.04 M/mm3 (3.65-5.03) 02/11/21 05:18 Hgb 11.1 gm/dl (11.8-15.2) L 02/11/21 05:18 Hct 33.4 % (35.5-45.6) L 02/11/21 05:18 MCV 83 fl (84-94) L 02/11/21 05:18 MCH 28 pg (28-32) 02/11/21 05:18 MCHC 33 % (32-34) 02/11/21 05:18 RDW 14.9 % (13.2-15.2) 02/11/21 05:18 Plt Count 213 K/mm3 (140-440) 02/11/21 05:18 Lymph % (Auto) 17.7 % (13.4-35.0) 02/11/21 05:18 [place] % (Auto) 12.5 % (0.0-7.3) H 02/11/21 05:18 Eos % (Auto) 1.1 % (0.0-4.3) 02/11/21 05:18 Baso % (Auto) 0.1 % (0.0-1.8) 02/11/21 05:18 Lymph # (Auto) 1.2 K/mm3 (1.2-5.4) 02/11/21 05:18 [place] # (Auto) 0.8 K/mm3 (0.0-0.8) 02/11/21 05:18 Eos # (Auto) 0.1 K/mm3 (0.0-0.4) 02/11/21 05:18 Baso # (Auto) 0.0 K/mm3 (0.0-0.1) 02/11/21 05:18 Seg Neutrophils % 68.6 % (40.0-70.0) 02/11/21 05:18 Seg Neutrophils # 4.5 K/mm3 (1.8-7.7) 02/11/21 05:18 PT 15.1 Sec. (12.2-14.9) H 02/10/21 23:30 INR 1.14 (0.87-1.13) H 02/10/21 23:30 APTT 27.2 Sec. (24.2-36.6) 02/10/21 23:30 D-Dimer 5212.57 ng/mlDDU (0-234) H 02/03/21 16:15 Sodium 140 mmol/L (137-145) 02/11/21 05:18 Potassium 3.7 mmol/L (3.6-5.0) 02/11/21 05:18 Chloride 101.0 mmol/L (98-107) 02/11/21 05:18 Carbon Dioxide 31 mmol/L (22-30) H 02/11/21 05:18 Anion Gap 12 mmol/L 02/11/21 05:18 BUN 10 mg/dL (9-20) 02/11/21 05:18 Creatinine 0.4 mg/dL (0.8-1.3) L 02/11/21 05:18 Estimated GFR > 60 ml/min 02/11/21 05:18 BUN/Creatinine Ratio 25 % 02/11/21 05:18 Glucose 111 mg/dL (75-100) H 02/11/21 05:18 Lactic Acid 1.10 mmol/L (0.7-2.0) 02/03/21 23:29 Calcium 8.1 mg/dL (8.4-10.2) L 02/11/21 05:18 Total Bilirubin 0.60 mg/dL (0.1-1.2) 02/03/21 13:22 AST 109 units/L (5-40) H 02/03/21 13:22 ALT 14 units/L (7-56) 02/03/21 13:22 Alkaline Phosphatase 35 units/L (35-129) 02/03/21 13:22 Lactate Dehydrogenase 262 units/L (91-180) H 02/03/21 16:15 C-Reactive Protein 14.10 mg/dL (0.00-1.30) H 02/03/21 16:15 Total Protein 6.9 g/dL (6.3-8.2) 02/03/21 13:22 Albumin 2.9 g/dL (3.9-5) L 02/03/21 13:22 Albumin/Globulin Ratio 0.7 % 02/03/21 13:22 Procalcitonin 7.85 ng/mL (<0.15) 02/03/21 16:15 Coronavirus (PCR) Negative (Negative) 02/04/21 Unknown Blood Type O POSITIVE 02/03/21 16:13 Antibody Screen Negative 02/03/21 16:13 Smith/IV: Voiding Method Condom Catheter Active Medications - Current Medications Current Medications: Generic Name Dose Route Start Last Admin Trade Name Freq PRN Reason Stop Dose Admin Acetaminophen 650 mg 02/03/21 16:09 Acetaminophen 325 Mg Tab PO Q4H PRN Pain MILD(1-3)/Fever >100.5/FROST Albuterol 2.5 mg 02/03/21 16:09 Albuterol 2.5 Mg/3 Ml Nebu IH Q4HRT PRN Shortness Of Breath Apixaban 10 mg 02/10/21 22:00 02/10/21 21:52 Apixaban 5 Mg Tab PO 02/17/21 10:01 10 mg Q12HR BE Administration Protocol Apixaban 5 mg 02/17/21 22:00 Apixaban 5 Mg Tab PO Q12HR BE Protocol Ascorbic Acid 500 mg 02/03/21 22:00 02/10/21 21:52 Ascorbic Acid 500 Mg Tab PO 500 mg BID BE Administration Cholecalciferol 1,000 unit 02/05/21 22:00 02/10/21 09:41 Cholecalciferol (Vit D3) 1000 Unit (25 Mcg) Tab PO 1,000 unit QDAY BE Administration Hydromorphone HCl 0.25 mg 02/03/21 16:12 02/10/21 01:12 Hydromorphone 1 Mg/1 Ml Inj IV 0.25 mg Q4H PRN Administration Pain, Moderate (4-6) Hydromorphone HCl 0.5 mg 02/03/21 17:00 Hydromorphone 1 Mg/1 Ml Inj IV Q4H PRN Pain , Severe (7-10) Dextrose/Sodium Chloride 1,000 mls @ 50 mls/hr 02/08/21 18:00 02/10/21 21:54 D5ns IV 50 mls/hr DIRECT BE Administration Ondansetron HCl 4 mg 02/03/21 16:09 02/10/21 01:14 Ondansetron 4 Mg/2 Ml Inj IV 4 mg Q8H PRN Administration Nausea And Vomiting Oxycodone/Acetaminophen 1 tab 02/03/21 16:09 02/09/21 22:10 Oxycodone /Acetaminophen 5-325mg Tab PO 1 tab Q16H PRN Administration Pain, Moderate (4-6) Prochlorperazine Maleate 10 mg 02/04/21 14:15 02/09/21 13:32 Prochlorperazine Maleate 10 Mg Tab PO 10 mg Q8H PRN Administration Hiccups Sodium Chloride 10 ml 02/03/21 22:00 02/10/21 21:53 Sodium Chloride 0.9% 10 Ml Flush Syringe IV 10 ml BID BE Administration Sodium Chloride 10 ml 02/03/21 16:09 Sodium Chloride 0.9% 10 Ml Flush Syringe IV PRN PRN LINE FLUSH Nutrition/Malnutrition Assess - Dietary Evaluation Nutrition/Malnutrition Findings: Nutrition Notes Start: 02/09/21 14:38 Freq: Status: Active Protocol: Document 02/09/21 14:38 GB (Rec: 02/09/21 15:00 GB [id number]) Nutrition Notes Need for Assessment generated from: LOS Initial or Follow up Assessment Current Diagnosis Sepsis,Respiratory Failure Other Pertinent Diagnosis PNA, DVT. Hx: HTN, CVA, schizophrenia, esophagitis Current Diet Pureed Labs/Tests 02/08: glucose 135, creatinine 0.5 Pertinent Medications Vit C, Vit D3, D5/NaCl 50ml/hr (204kcal), NaCl, Zn Sulfate Height 6 ft Weight 90.718 kg [place] Body Weight (kg) 80.90 BMI 27.1 Intake Prior to Admission Fair Weight change and time frame No reported weight changes upon admission Weight Status Overweight Subjective/Other Information Resides in personal halfway, bedfast, barium swallow [employer] OUT MAN recommends puree/thin, per RN notes po intake is 25-50% fair . Percent of energy/protein needs met: Less than 50% with current poor-fair PO intake Burn Absent Trauma Absent GI Symptoms None Difficulty In Swallowing Food Allergy No Skin Integrity/Comment No complications reported Current % PO Poor (25-49%) Minimum of two criteria No #1 Nutrition Diagnosis Inadequate energy intake Etiology sepsis, PNA, ARF As Evidenced by Signs and Symptoms documented poor-fair po intake Is patient on ventilator? No Is Patient Ambulatory and/or Out of Bed No REE-([facility]-confined to bed) 2164.020 Kcal/Kg value to use for calculation 22 Approximate Energy Requirements Using 1996 kcal/Kg Calculation Used for Recommendations Kcal/kg Additional Notes Protein: 1-1.2 g/kg @ 90k -108g Fluids: 1 ml/kcal or per MD Nutrition Intervention Change Diet Order: continue, advance texture per [employer] MAN Nutrition Support: n/a Add Supplement/Snack (indicate name/kcal ensure enlive BID /protein ) Provides kCal: 700 Provides Protein (gm) 40 Goal #1 PO intake of meals to improve to 50% or greater TID daily during LOS Goal #2 PO intake of nutritional supplement beverage to be 50% or greater BID daily during LOS Follow-Up By: 02/16/21 Additional Comments f/u: po intake of meals/ supplement
[2021-02-11] MEDS: APIXABAN 5 MG TAB PO SCH ×2 (10:47→21:05)
[2021-02-11] MEDS: ASCORBIC ACID 500 MG TAB PO SCH ×2 (10:47→21:05)
[2021-02-11] MEDS: CHOLECALCIFEROL (VIT D3) 1000 UNIT (25 mcg) TAB PO SCH (10:48)
[2021-02-11] MEDS: D5W/0.9% NACL 1,000 ML IV SCH (16:28)
[2021-02-11] MEDS: HYDROmorphone 1 MG/1 ML INJ IV PRN (17:43)
[2021-02-12 06:01] LABS: Hematocrit 35.1 % (35.5-45.6); Hemoglobin 11.9 gm/dl (11.8-15.2); Mean Corpuscular HGB Conc 34 % (32-34); Mean Corpuscular Volume 83 fl (84-94); Platelet Count 191 K/mm3 (140-440); Red Blood Count 4.21 M/mm3 (3.65-5.03); Red Cell Distribution Width 15.5 % (13.2-15.2)
[2021-02-12] MEDS: ASCORBIC ACID 500 MG TAB PO SCH ×2 (09:24→22:02)
[2021-02-12] MEDS: CHOLECALCIFEROL (VIT D3) 1000 UNIT (25 mcg) TAB PO SCH (09:24)
[2021-02-12] MEDS: APIXABAN 5 MG TAB PO SCH ×2 (09:24→22:02)
[2021-02-12] MEDS: D5W/0.9% NACL 1,000 ML IV SCH (09:25)
--- NOTE | 2021-02-12 11:12 | Progress Note ---
Assessment and Plan - Patient Problems (1) Sepsis Current Visit: Yes Status: Acute Qualifiers: Acute respiratory failure type: with hypoxia Plan to address problem: Resolved (2) Pneumonia Current Visit: Yes Status: Acute Plan to address problem: Resolved (3) Suspected 2019 novel coronavirus infection Current Visit: Yes Status: Acute Plan to address problem: Coronavirus protocol: IV antibiotic therapy, IV steroid therapy, supplemental oxygen, pulse oximetry, vitamin C therapy, vitamin D therapy, zinc therapy, prophylactic anticoagulation. (4) Acute respiratory failure with hypoxia Current Visit: Yes Status: Acute Plan to address problem: Supplemental oxygen, pulse oximetry, nebulizer therapy, will consider high flow supplemental oxygen if patient is unable to maintain pulse oximetry with oxygen via nasal cannula. (5) DVT prophylaxis Current Visit: Yes Status: Acute Plan to address problem: SCD to bilateral lower extremities while in bed, prophylactic anticoagulation (6) Advance care planning Current Visit: Yes Status: Acute Plan to address problem: Disease education conducted, care plan discussed, diagnosis discussed, prognosis discussed, patient is full code, patient caregiver acknowledges understanding agreement with care plan, +30 minutes. Case management consulted for assistance with discharge planning. History Interval history: 50 YO Male HD #10 with sepsis status post resolution, pneumonia, acute respiratory failure. Patient medically optimized at this time. Patient pending placement. Case management consulted. No reported nursing events. Patient is at baseline level of cognition and function. Hospitalist Physical - Constitutional Vitals: Temp Pulse Resp BP Pulse Ox 98.1 F 76 16 115/73 100 02/11/21 21:14 02/11/21 21:14 02/11/21 21:14 02/11/21 21:14 02/11/21 21:14 General appearance: Present: mild distress - EENT Eyes: Present: PERRL, EOM intact ENT: hearing intact - Neck Neck: Present: supple - Respiratory Respiratory effort: normal Respiratory: bilateral: CTA - Cardiovascular Rhythm: regular Heart Sounds: Present: S1 & S2 - Extremities Extremities: no ischemia Peripheral Pulses: within normal limits - Abdominal General gastrointestinal: soft, non-tender, non-distended - Integumentary Integumentary: Present: clear, dry - Psychiatric Psychiatric: cooperative - Neurologic Neurologic: CNII-XII intact Results - Labs CBC & Chem 7: 02/12/21 04:58 02/11/21 05:18 Labs: Laboratory Last Values WBC 6.3 K/mm3 (4.5-11.0) 02/12/21 04:58 RBC 4.21 M/mm3 (3.65-5.03) 02/12/21 04:58 Hgb 11.9 gm/dl (11.8-15.2) 02/12/21 04:58 Hct 35.1 % (35.5-45.6) L 02/12/21 04:58 MCV 83 fl (84-94) L 02/12/21 04:58 MCH 28 pg (28-32) 02/12/21 04:58 MCHC 34 % (32-34) 02/12/21 04:58 RDW 15.5 % (13.2-15.2) H 02/12/21 04:58 Plt Count 191 K/mm3 (140-440) 02/12/21 04:58 Lymph % (Auto) 17.7 % (13.4-35.0) 02/11/21 05:18 [place] % (Auto) 12.5 % (0.0-7.3) H 02/11/21 05:18 Eos % (Auto) 1.1 % (0.0-4.3) 02/11/21 05:18 Baso % (Auto) 0.1 % (0.0-1.8) 02/11/21 05:18 Lymph # (Auto) 1.2 K/mm3 (1.2-5.4) 02/11/21 05:18 [place] # (Auto) 0.8 K/mm3 (0.0-0.8) 02/11/21 05:18 Eos # (Auto) 0.1 K/mm3 (0.0-0.4) 02/11/21 05:18 Baso # (Auto) 0.0 K/mm3 (0.0-0.1) 02/11/21 05:18 Seg Neutrophils % 68.6 % (40.0-70.0) 02/11/21 05:18 Seg Neutrophils # 4.5 K/mm3 (1.8-7.7) 02/11/21 05:18 PT 15.1 Sec. (12.2-14.9) H 02/10/21 23:30 INR 1.14 (0.87-1.13) H 02/10/21 23:30 APTT 27.2 Sec. (24.2-36.6) 02/10/21 23:30 D-Dimer 5212.57 ng/mlDDU (0-234) H 02/03/21 16:15 Sodium 140 mmol/L (137-145) 02/11/21 05:18 Potassium 3.7 mmol/L (3.6-5.0) 02/11/21 05:18 Chloride 101.0 mmol/L (98-107) 02/11/21 05:18 Carbon Dioxide 31 mmol/L (22-30) H 02/11/21 05:18 Anion Gap 12 mmol/L 02/11/21 05:18 BUN 10 mg/dL (9-20) 02/11/21 05:18 Creatinine 0.4 mg/dL (0.8-1.3) L 02/11/21 05:18 Estimated GFR > 60 ml/min 02/11/21 05:18 BUN/Creatinine Ratio 25 % 02/11/21 05:18 Glucose 111 mg/dL (75-100) H 02/11/21 05:18 Lactic Acid 1.10 mmol/L (0.7-2.0) 02/03/21 23:29 Calcium 8.1 mg/dL (8.4-10.2) L 02/11/21 05:18 Total Bilirubin 0.60 mg/dL (0.1-1.2) 02/03/21 13:22 AST 109 units/L (5-40) H 02/03/21 13:22 ALT 14 units/L (7-56) 02/03/21 13:22 Alkaline Phosphatase 35 units/L (35-129) 02/03/21 13:22 Lactate Dehydrogenase 262 units/L (91-180) H 02/03/21 16:15 C-Reactive Protein 14.10 mg/dL (0.00-1.30) H 02/03/21 16:15 Total Protein 6.9 g/dL (6.3-8.2) 02/03/21 13:22 Albumin 2.9 g/dL (3.9-5) L 02/03/21 13:22 Albumin/Globulin Ratio 0.7 % 02/03/21 13:22 Procalcitonin 7.85 ng/mL (<0.15) 02/03/21 16:15 Coronavirus (PCR) Negative (Negative) 02/04/21 Unknown Blood Type O POSITIVE 02/03/21 16:13 Antibody Screen Negative 02/03/21 16:13 Smith/IV: Voiding Method Condom Catheter Active Medications - Current Medications Current Medications: Generic Name Dose Route Start Last Admin Trade Name Freq PRN Reason Stop Dose Admin Acetaminophen 650 mg 02/03/21 16:09 Acetaminophen 325 Mg Tab PO Q4H PRN Pain MILD(1-3)/Fever >100.5/FROST Albuterol 2.5 mg 02/03/21 16:09 Albuterol 2.5 Mg/3 Ml Nebu IH Q4HRT PRN Shortness Of Breath Apixaban 10 mg 02/10/21 22:00 02/12/21 09:24 Apixaban 5 Mg Tab PO 02/17/21 10:01 10 mg Q12HR BE Administration Protocol Apixaban 5 mg 02/17/21 22:00 Apixaban 5 Mg Tab PO Q12HR BE Protocol Ascorbic Acid 500 mg 02/03/21 22:00 02/12/21 09:24 Ascorbic Acid 500 Mg Tab PO 500 mg BID BE Administration Cholecalciferol 1,000 unit 02/05/21 22:00 02/12/21 09:24 Cholecalciferol (Vit D3) 1000 Unit (25 Mcg) Tab PO 1,000 unit QDAY BE Administration Hydromorphone HCl 0.25 mg 02/03/21 16:12 02/10/21 01:12 Hydromorphone 1 Mg/1 Ml Inj IV 0.25 mg Q4H PRN Administration Pain, Moderate (4-6) Hydromorphone HCl 0.5 mg 02/03/21 17:00 Hydromorphone 1 Mg/1 Ml Inj IV Q4H PRN Pain , Severe (7-10) Dextrose/Sodium Chloride 1,000 mls @ 50 mls/hr 02/08/21 18:00 02/12/21 09:25 D5ns IV 50 mls/hr DIRECT BE Administration Ondansetron HCl 4 mg 02/03/21 16:09 02/10/21 01:14 Ondansetron 4 Mg/2 Ml Inj IV 4 mg Q8H PRN Administration Nausea And Vomiting Oxycodone/Acetaminophen 1 tab 02/03/21 16:09 02/09/21 22:10 Oxycodone /Acetaminophen 5-325mg Tab PO 1 tab Q16H PRN Administration Pain, Moderate (4-6) Prochlorperazine Maleate 10 mg 02/04/21 14:15 02/09/21 13:32 Prochlorperazine Maleate 10 Mg Tab PO 10 mg Q8H PRN Administration Hiccups Sodium Chloride 10 ml 02/03/21 22:00 02/12/21 09:24 Sodium Chloride 0.9% 10 Ml Flush Syringe IV Not Given BID BE Sodium Chloride 10 ml 02/03/21 16:09 Sodium Chloride 0.9% 10 Ml Flush Syringe IV PRN PRN LINE FLUSH Nutrition/Malnutrition Assess - Dietary Evaluation Nutrition/Malnutrition Findings: Nutrition Notes Start: 02/09/21 14:38 Freq: Status: Active Protocol: Document 02/09/21 14:38 GB (Rec: 02/09/21 15:00 GB [email or web address]) Nutrition Notes Need for Assessment generated from: LOS Initial or Follow up Assessment Current Diagnosis Sepsis,Respiratory Failure Other Pertinent Diagnosis PNA, DVT. Hx: HTN, CVA, schizophrenia, esophagitis Current Diet Pureed Labs/Tests 02/08: glucose 135, creatinine 0.5 Pertinent Medications Vit C, Vit D3, D5/NaCl 50ml/hr (204kcal), NaCl, Zn Sulfate Height 6 ft Weight 90.718 kg [place] Body Weight (kg) 80.90 BMI 27.1 Intake Prior to Admission Fair Weight change and time frame No reported weight changes upon admission Weight Status Overweight Subjective/Other Information Resides in personal group home, bedfast, barium swallow [employer] O[employer] recommends puree/thin, per RN notes po intake is 25-50% fair . Percent of energy/protein needs met: Less than 50% with current poor-fair PO intake Burn Absent Trauma Absent GI Symptoms None Difficulty In Swallowing Food Allergy No Skin Integrity/Comment No complications reported Current % PO Poor (25-49%) Minimum of two criteria No #1 Nutrition Diagnosis Inadequate energy intake Etiology sepsis, PNA, ARF As Evidenced by Signs and Symptoms documented poor-fair po intake Is patient on ventilator? No Is Patient Ambulatory and/or Out of Bed No REE-([facility]-confined to bed) 2164.020 Kcal/Kg value to use for calculation 22 Approximate Energy Requirements Using 1996 kcal/Kg Calculation Used for Recommendations Kcal/kg Additional Notes Protein: 1-1.2 g/kg @ 90k -108g Fluids: 1 ml/kcal or per MD Nutrition Intervention Change Diet Order: continue, advance texture per [employer] Nutrition Support: n/a Add Supplement/Snack (indicate name/kcal ensure enlive BID /protein ) Provides kCal: 700 Provides Protein (gm) 40 Goal #1 PO intake of meals to improve to 50% or greater TID daily during LOS Goal #2 PO intake of nutritional supplement beverage to be 50% or greater BID daily during LOS Follow-Up By: 02/16/21 Additional Comments f/u: po intake of meals/ supplement
[2021-02-12] MEDS: ONDANSETRON 4 MG/2 ML INJ IV PRN (13:26)
[2021-02-13] MEDS: D5W/0.9% NACL 1,000 ML IV SCH ×2 (04:09→22:56)
[2021-02-13] MEDS: APIXABAN 5 MG TAB PO SCH ×2 (10:44→22:50)
[2021-02-13] MEDS: ASCORBIC ACID 500 MG TAB PO SCH ×2 (10:44→22:50)
[2021-02-13] MEDS: CHOLECALCIFEROL (VIT D3) 1000 UNIT (25 mcg) TAB PO SCH (10:45)
--- NOTE | 2021-02-13 19:19 | Progress Note ---
Assessment and Plan Assessment and plan: Assessment and Plan - Patient Problems (1) Sepsis Current Visit: Yes Status: Acute Qualifiers: Acute respiratory failure type: with hypoxia Plan to address problem: Resolved (2) Pneumonia Current Visit: Yes Status: Acute Plan to address problem: Resolved (3) 2019 novel coronavirus infection Current Visit: Yes Status: Acute Plan to address problem: Coronavirus protocol: IV antibiotic therapy, IV steroid therapy, supplemental oxygen, pulse oximetry, vitamin C therapy, vitamin D therapy, zinc therapy, prophylactic anticoagulation. (4) Acute respiratory failure with hypoxia Current Visit: Yes Status: Acute Plan to address problem: Currently needing 2 L of oxygen. Continue with oxygen as tolerated. (5) DVT prophylaxis Current Visit: Yes Status: Acute Plan to address problem: SCD to bilateral lower extremities while in bed, prophylactic anticoagulation (6) Advance care planning Current Visit: Yes Status: Acute Plan to address problem: Disease education conducted, care plan discussed, diagnosis discussed, prognosis discussed, patient is full code, Case management consulted for assistance with discharge planning. History Interval history: 50 YO Male HD #10 with sepsis status post resolution, pneumonia, acute respiratory failure. Patient medically optimized at this time. Patient discharge pending placement. Case management consulted. No reported nursing events. Patient is at baseline level of cognition and function. History Interval history: Patient remains on full dose of oxygen without difficulty breathing. She is stable for discharge, awaiting Subacute rehab placement. No new events reported or complaints. Hospitalist Physical - Constitutional Vitals: Temp Pulse Resp BP Pulse Ox 98.5 F 110 H 18 101/67 99 02/13/21 11:25 02/13/21 11:25 02/13/21 11:25 02/13/21 11:25 02/13/21 11:25 General appearance: Present: no acute distress, well-nourished - EENT Eyes: Present: PERRL ENT: hearing intact - Neck Neck: Present: supple - Respiratory Respiratory effort: normal Respiratory: bilateral: diminished - Cardiovascular Rhythm: regular - Extremities Extremities: No edema - Abdominal General gastrointestinal: soft, non-tender, normal bowel sounds - Integumentary Integumentary: Absent: rash - Psychiatric Psychiatric: appropriate mood/affect - Neurologic Neurologic: no focal deficits, moves all extremities Results - Labs CBC & Chem 7: 02/12/21 04:58 02/13/21 05:32 Labs: Laboratory Last Values WBC 6.3 K/mm3 (4.5-11.0) 02/12/21 04:58 RBC 4.21 M/mm3 (3.65-5.03) 02/12/21 04:58 Hgb 11.9 gm/dl (11.8-15.2) 02/12/21 04:58 Hct 35.1 % (35.5-45.6) L 02/12/21 04:58 MCV 83 fl (84-94) L 02/12/21 04:58 MCH 28 pg (28-32) 02/12/21 04:58 MCHC 34 % (32-34) 02/12/21 04:58 RDW 15.5 % (13.2-15.2) H 02/12/21 04:58 Plt Count 191 K/mm3 (140-440) 02/12/21 04:58 Lymph % (Auto) 17.7 % (13.4-35.0) 02/11/21 05:18 [place] % (Auto) 12.5 % (0.0-7.3) H 02/11/21 05:18 Eos % (Auto) 1.1 % (0.0-4.3) 02/11/21 05:18 Baso % (Auto) 0.1 % (0.0-1.8) 02/11/21 05:18 Lymph # (Auto) 1.2 K/mm3 (1.2-5.4) 02/11/21 05:18 [place] # (Auto) 0.8 K/mm3 (0.0-0.8) 02/11/21 05:18 Eos # (Auto) 0.1 K/mm3 (0.0-0.4) 02/11/21 05:18 Baso # (Auto) 0.0 K/mm3 (0.0-0.1) 02/11/21 05:18 Seg Neutrophils % 68.6 % (40.0-70.0) 02/11/21 05:18 Seg Neutrophils # 4.5 K/mm3 (1.8-7.7) 02/11/21 05:18 PT 15.1 Sec. (12.2-14.9) H 02/10/21 23:30 INR 1.14 (0.87-1.13) H 02/10/21 23:30 APTT 27.2 Sec. (24.2-36.6) 02/10/21 23:30 D-Dimer 5212.57 ng/mlDDU (0-234) H 02/03/21 16:15 Sodium 140 mmol/L (137-145) 02/11/21 05:18 Potassium 3.7 mmol/L (3.6-5.0) 02/11/21 05:18 Chloride 101.0 mmol/L (98-107) 02/11/21 05:18 Carbon Dioxide 31 mmol/L (22-30) H 02/11/21 05:18 Anion Gap 12 mmol/L 02/11/21 05:18 BUN 10 mg/dL (9-20) 02/11/21 05:18 Creatinine 0.5 mg/dL (0.8-1.3) L 02/13/21 05:32 Estimated GFR > 60 ml/min 02/13/21 05:32 BUN/Creatinine Ratio 25 % 02/11/21 05:18 Glucose 111 mg/dL (75-100) H 02/11/21 05:18 Lactic Acid 1.10 mmol/L (0.7-2.0) 02/03/21 23:29 Calcium 8.1 mg/dL (8.4-10.2) L 02/11/21 05:18 Total Bilirubin 0.60 mg/dL (0.1-1.2) 02/03/21 13:22 AST 109 units/L (5-40) H 02/03/21 13:22 ALT 14 units/L (7-56) 02/03/21 13:22 Alkaline Phosphatase 35 units/L (35-129) 02/03/21 13:22 Lactate Dehydrogenase 262 units/L (91-180) H 02/03/21 16:15 C-Reactive Protein 14.10 mg/dL (0.00-1.30) H 02/03/21 16:15 Total Protein 6.9 g/dL (6.3-8.2) 02/03/21 13:22 Albumin 2.9 g/dL (3.9-5) L 02/03/21 13:22 Albumin/Globulin Ratio 0.7 % 02/03/21 13:22 Procalcitonin 7.85 ng/mL (<0.15) 02/03/21 16:15 Coronavirus (PCR) Negative (Negative) 02/04/21 Unknown Blood Type O POSITIVE 02/03/21 16:13 Antibody Screen Negative 02/03/21 16:13 Smith/IV: Voiding Method Condom Catheter Active Medications - Current Medications Current Medications: Generic Name Dose Route Start Last Admin Trade Name Freq PRN Reason Stop Dose Admin Acetaminophen 650 mg 02/03/21 16:09 Acetaminophen 325 Mg Tab PO Q4H PRN Pain MILD(1-3)/Fever >100.5/FROST Albuterol 2.5 mg 02/03/21 16:09 Albuterol 2.5 Mg/3 Ml Nebu IH Q4HRT PRN Shortness Of Breath Apixaban 10 mg 02/10/21 22:00 02/13/21 10:44 Apixaban 5 Mg Tab PO 02/17/21 10:01 10 mg Q12HR BE Administration Protocol Apixaban 5 mg 02/17/21 22:00 Apixaban 5 Mg Tab PO Q12HR BE Protocol Ascorbic Acid 500 mg 02/03/21 22:00 02/13/21 10:44 Ascorbic Acid 500 Mg Tab PO 500 mg BID BE Administration Cholecalciferol 1,000 unit 02/05/21 22:00 02/13/21 10:45 Cholecalciferol (Vit D3) 1000 Unit (25 Mcg) Tab PO 1,000 unit QDAY BE Administration Dextrose/Sodium Chloride 1,000 mls @ 50 mls/hr 02/08/21 18:00 02/13/21 04:09 D5ns IV 50 mls/hr DIRECT BE Administration Ondansetron HCl 4 mg 02/03/21 16:09 02/12/21 13:26 Ondansetron 4 Mg/2 Ml Inj IV 4 mg Q8H PRN Administration Nausea And Vomiting Oxycodone/Acetaminophen 1 tab 02/03/21 16:09 02/09/21 22:10 Oxycodone /Acetaminophen 5-325mg Tab PO 1 tab Q16H PRN Administration Pain, Moderate (4-6) Prochlorperazine Maleate 10 mg 02/04/21 14:15 02/09/21 13:32 Prochlorperazine Maleate 10 Mg Tab PO 10 mg Q8H PRN Administration Hiccups Sodium Chloride 10 ml 02/03/21 22:00 10/11/21 10:45 Sodium Chloride 0.9% 10 Ml Flush Syringe IV 10 ml BID BE Administration Sodium Chloride 10 ml 02/03/21 16:09 Sodium Chloride 0.9% 10 Ml Flush Syringe IV PRN PRN LINE FLUSH Nutrition/Malnutrition Assess - Dietary Evaluation Nutrition/Malnutrition Findings: Nutrition Notes Start: 02/09/21 14:38 Freq: Status: Active Protocol: Document 02/09/21 14:38 GB (Rec: 02/09/21 15:00 GB [id number]) Nutrition Notes Need for Assessment generated from: LOS Initial or Follow up Assessment Current Diagnosis Sepsis,Respiratory Failure Other Pertinent Diagnosis PNA, DVT. Hx: HTN, CVA, schizophrenia, esophagitis Current Diet Pureed Labs/Tests 02/08: glucose 135, creatinine 0.5 Pertinent Medications Vit C, Vit D3, D5/NaCl 50ml/hr (204kcal), NaCl, Zn Sulfate Height 6 ft Weight 90.718 kg [place] Body Weight (kg) 80.90 BMI 27.1 Intake Prior to Admission Fair Weight change and time frame No reported weight changes upon admission Weight Status Overweight Subjective/Other Information Resides in personal senior living, bedfast, barium swallow [employer]EN CONTR[employer]LLER recommends puree/thin, per RN notes po intake is 25-50% fair . Percent of energy/protein needs met: Less than 50% with current poor-fair PO intake Burn Absent Trauma Absent GI Symptoms None Difficulty In Swallowing Food Allergy No Skin Integrity/Comment No complications reported Current % PO Poor (25-49%) Minimum of two criteria No #1 Nutrition Diagnosis Inadequate energy intake Etiology sepsis, PNA, ARF As Evidenced by Signs and Symptoms documented poor-fair po intake Is patient on ventilator? No Is Patient Ambulatory and/or Out of Bed No REE-([facility]-confined to bed) 2164.020 Kcal/Kg value to use for calculation 22 Approximate Energy Requirements Using 1996 kcal/Kg Calculation Used for Recommendations Kcal/kg Additional Notes Protein: 1-1.2 g/kg @ 90k -108g Fluids: 1 ml/kcal or per MD Nutrition Intervention Change Diet Order: continue, advance texture per [employer] CONTR[employer]ER Nutrition Support: n/a Add Supplement/Snack (indicate name/kcal ensure enlive BID /protein ) Provides kCal: 700 Provides Protein (gm) 40 Goal #1 PO intake of meals to improve to 50% or greater TID daily during LOS Goal #2 PO intake of nutritional supplement beverage to be 50% or greater BID daily during LOS Follow-Up By: 02/16/21 Additional Comments f/u: po intake of meals/ supplement
[2021-02-14 06:21] LABS: Hemoglobin 11.5 gm/dl (11.8-15.2); Mean Corpuscular HGB Conc 34 % (32-34); Mean Corpuscular Volume 83 fl (84-94); Platelet Count 163 K/mm3 (140-440); Red Blood Count 4.08 M/mm3 (3.65-5.03); Red Cell Distribution Width 15.4 % (13.2-15.2)
--- NOTE | 2021-02-14 09:12 | Discharge Summary ---
Providers - Providers Date of Admission: 02/03/21 16:09 Attending physician: SHWETHA CHIRINOS MD 02/06/21 13:01 Speech Therapy Evaluation and Treat [CONS] Routine Reason For Exam: Aspiration 02/07/21 11:22 Occupational Therapy Evaluate and Treat [CONS] Routine Comment: Requires [facility]/SNF placement Reason For Exam: Debility Physical Therapy Evaluation and Treat [CONS] Routine Comment: Requires [facility]/SNF placement Reason For Exam: Debility Primary care physician: [facility] Hospitalization Reason for admission: shortness of breath Condition: Stable Hospital course: 50 YO Male Personal Fdc Resident with Developmental, HTN, CVA, Schizophrenia, Esophagitis presents ED for evaluation. Patient has diminished cognition and is unable to provide detailed history. Patient history taken from EMS staff, ED staff, as well as personal care aid. As per caregiver the patient has experienced generalized weakness over the past 2 days as well as multiple episodes of emesis over the past 24 hours. EMS was notified and upon arrival the patient was found to be in distress and subsequent transported to [facility] for further care and evaluation of the aforementioned symptoms. The patient was seen and evaluated in the emergency department. All lab and imaging studies reviewed. The patient was found to be febrile with a temperature of 102.8 F, tachycardia with a heart rate in the 120s a systolic blood pressure in the 80s as well as a pulse oximetry of 88% on room air. The patient was found to have sepsis secondary to pneumonia. Patient admitted to medical floor and initiated on sepsis protocol as well as pneumonia protocol, and coronavirus protocol. Patient has diminished cognition at the time my evaluation but has a positive gag reflex and is able to protect his airway without difficulty. No further history is obtainable. No prior admission for review. No medication listed at time of admission reconciliation. Advanced care planning conducted in ED. Brief clinical course: 02/04/21: Covid test result pending, continue to follow clinically. Continue empiric antibiotics 02/05/21: Test is negative, continue to treat for right-sided pneumonia - aspiration versus community-acquired. Patient remains on 4 L nasal cannula O2. Continue empiric antibiotics and wean off from O2 as tolerated. Patient continues to have hiccups, encouraged RN to give the medications properly. Also assess for aspiration. 02/06/21; patient remains hypoxic on room air, continue empiric antibiotic for antibiotic coverage, order CTA chest for elevated D-dimer. Wean off O2 as tolerated 02/07/21: acute PE on CT chest_ initiated on lovenox for therapeutic anticoagulation, wean off O2 as tolerated. Modified barium swallow study today showed no sign of aspiration. Discussed with RN for assisted feeding. Continue to provide supportive care. 02/08/21: Continue therapeutic anticoagulation, PT recommended SNF placement, case consultant notified for SNF placement. Patient tolerating diet better 02/09/21; pending SNF placement, will place on pured diet for better tolerance. Continue supportive care. 02/10/21: Change Lovenox to Eliquis, pending SNF placement. Patient will level 2, discussed with case management. Tolerating diet better, noted no hiccups today. 02/14: Took over care today, patient clinically stable for discharge today. --Sepsis due to pneumonia Presented with fever tachycardia tachypnea and right sided pneumonia Sepsis protocol: CBC, CMP, IV fluid resuscitation therapy, IV antibiotic therapy, supplemental oxygen, pulse oximetry, monitor urine output every shift, monitor fluid balance, maintain mean arterial pressure greater than or equal to 65, blood culture, serial lactic acid level, -- Pneumonia IV antibiotic therapy, supplemental oxygen, pulse oximetry, nebulizer therapy, -- Suspected 2019 novel coronavirus infection, ruled out with a negative test --Acute respiratory failure with hypoxia Likely due to underlying pneumonia and acute PE Supplemental oxygen, pulse oximetry, nebulizer therapy, will consider high flow supplemental oxygen if patient is unable to maintain pulse oximetry with oxygen via nasal cannula. --History of developmental delay , supportive care --HTN, CVA: Continue home meds --History of schizophrenia, psych consulted --Hiccups, ordered for Compazine --Acute right lung Elevated D-dimer on admission, CT suggestive for PE, initiated on therapeutic anticoagulation Disposition: [facility] Final Discharge Diagnosis (Prints w/discharge instructions): ACUTE HYPOXIC RESPIRATORY FAILURE SECONDARY TO PULMONARY EMBOLISIM Time spent for discharge: 35 MINS Core Measure Documentation - Palliative Care Palliative Care/ Comfort Measures: Not Applicable - Core Measures Any of the following diagnoses?: none Exam - Physical Exam Narrative exam: General appearance: Present: no acute distress, well-nourished - EENT Eyes: Present: PERRL ENT: hearing intact - Neck Neck: Present: supple - Respiratory Respiratory effort: normal Respiratory: bilateral: diminished - Cardiovascular Rhythm: regular - Extremities Extremities: No edema - Abdominal General gastrointestinal: soft, non-tender, normal bowel sounds - Integumentary Integumentary: Absent: rash - Psychiatric Psychiatric: appropriate mood/affect - Neurologic Neurologic: no focal deficits, moves all extremities - Constitutional Vitals: Temp Pulse Resp BP Pulse Ox 98.1 F 94 H 18 99/66 97 02/14/21 05:13 02/14/21 05:13 02/14/21 05:13 02/14/21 05:13 02/14/21 05:13 Plan Activity: advance as tolerated, fall precautions Diet: low fat Special Instructions: record daily weights, record daily BP diary Plan of Treatment: Follow with pulmonary physician per Primary doctors recommendation Psych follow up per [place] Follow up with: PRIMARY CARE, [Primary Care Provider] - 3-5 Days Forms: Accompanied Note Prescriptions: Apixaban [Eliquis] 5 mg PO Q12HR #60 tablet Apixaban [Eliquis] 10 mg PO Q12HR #7 tablet
[2021-02-14] MEDS: APIXABAN 5 MG TAB PO SCH (10:22)
[2021-02-14] MEDS: CHOLECALCIFEROL (VIT D3) 1000 UNIT (25 mcg) TAB PO SCH (10:22)
[2021-02-14] MEDS: ASCORBIC ACID 500 MG TAB PO SCH (10:22)
[2021-02-14 16:35] VITALS: BP 125/85
[2021-02-17] MEDS ORDERED: APIXABAN 5 MG TAB PO SCH (22:00)
== END 2021-02-14 22:00 | DRG 871 ==
LOC: ED 12:44 → 3A 16:09
PROVIDERS: ADMIT Internal Medicine; ATTEND Internal Medicine
DX: A41.9 Sepsis, unspecified organism (principal); J96.01 Acute respiratory failure with hypoxia; J18.9 Pneumonia, unspecified organism; R65.21 Severe sepsis with septic shock; I26.99 Other pulmonary embolism without acute cor pulmonale; Z20.822 Contact with and (suspected) exposure to COVID-19; F20.9 Schizophrenia, unspecified; R62.50 Unspecified lack of expected normal physiological development in childhood; I10 Essential (primary) hypertension; Z86.73 Personal history of transient ischemic attack (TIA), and cerebral infarction without residual deficits; K20.90 Esophagitis, unspecified without bleeding; Z82.49 Family history of ischemic heart disease and other diseases of the circulatory system; Z83.3 Family history of diabetes mellitus
CPT/HCPCS: 36415; 71045; 71275; 74230; 80048; 80053; 82140; 82565; 83615; 84145; 85025; 85027; 85379; 85610; 85730; 86140; 86850; 86900; 86901; 87040; 94640; 94760; G0378; J7070; C9113; J0692; J1170; J1644; J1650; J2405; J2765; J2920; J3370; J7030; J7040; J7042; Q0164; Q9967; U0003

== ENCOUNTER 2021-02-25 12:50 | Emergency (ER) | payer MEDICARE ==
[2021-02-25 14:53] LABS: Basophils % (Auto) 0.2 % (0.0-1.8); Hematocrit 37.6 % (35.5-45.6); Hemoglobin 12.4 gm/dl (11.8-15.2); Lymphocytes # (Auto) 0.5 K/mm3 (1.2-5.4); Mean Corpuscular HGB Conc 33 % (32-34); Mean Corpuscular Volume 85 fl (84-94); Monocytes # (Auto) 1.2 K/mm3 (0.0-0.8); Monocytes % (Auto) 11.7 % (0.0-7.3); Platelet Count 186 K/mm3 (140-440); Red Blood Count 4.43 M/mm3 (3.65-5.03)
[2021-02-25 15:04] LABS: INR 1.11 (0.87-1.13)
[2021-02-25 15:05] LABS: Partial Thromboplastin Time 29.1 Sec. (24.2-36.6)
[2021-02-25] MEDS ORDERED: PANTOPRAZOLE 40 MG INJ IV ONE (15:05)
[2021-02-25] MEDS ORDERED: ONDANSETRON 4 MG/2 ML INJ IV ONE (15:05)
--- NOTE | 2021-02-25 15:11 | Emergency Department Report ---
ED GI Bleed HPI - General Chief complaint: GI Bleed Stated complaint: VOMITING Time Seen by Provider: 02/25/21 14:31 Source: EMS Mode of arrival: Stretcher Limitations: Altered Mental Status - History of Present Illness Initial comments: 50-year-old male, history of CVA, schizophrenia, hypertension, chronic hiccups, esophagitis, PE (on Eliquis ) presents to ED with vomiting x6 days. Patient evidently had black vomit today, per detention. Patient is poor historian, only answers "yes" to everything. MD complaint: coffee ground emesis -: This afternoon Severity scale (0 -10): 0 Associated Symptoms: vomiting Treatments Prior to Arrival: none - Related Data Home Medications Medication Instructions Recorded Confirmed Last Taken Divalproex Dr [Kaila Luque] 250 mg PO QHS 02/09/21 02/09/21 Unknown Metoclopramide [Reglan TAB] 10 mg PO TID 02/09/21 02/09/21 Unknown Paliperidone Palmitate [Invega 156 mg IM QMONTH 02/09/21 02/09/21 Unknown Sustenna] Pantoprazole [Protonix TAB] 40 mg PO BID 02/09/21 02/09/21 Unknown Previous Rx's Medication Instructions Recorded Last Taken Type Apixaban [Eliquis] 5 mg PO Q12HR #60 tablet 02/14/21 Unknown Rx Apixaban [Eliquis] 10 mg PO Q12HR #7 tablet 02/14/21 Unknown Rx Ondansetron [Zofran Odt] 4 mg PO Q8HR PRN #20 tab.rapdis 02/25/21 Unknown Rx Allergies Allergy/AdvReac Type Severity Reaction Status Date / Time No Known Allergies Allergy Verified 02/03/21 13:13 ED Review of Systems ROS: Stated complaint: VOMITING Other details as noted in HPI Comment: Unobtainable due to pts medical conditions Gastrointestinal: vomiting ED Past Medical Hx - Past Medical History Hx Hypertension: Yes Hx CVA: Yes Hx Psychiatric Treatment: Yes Additional medical history: schizophrenia - Social History Smoking Status: Unknown if ever smoked - Medications Home Medications: Home Medications Medication Instructions Recorded Confirmed Last Taken Type Divalproex Dr [Kaila Luque] 250 mg PO QHS 02/09/21 02/09/21 Unknown History Metoclopramide [Reglan TAB] 10 mg PO TID 02/09/21 02/09/21 Unknown History Paliperidone Palmitate [Invega 156 mg IM QMONTH 02/09/21 02/09/21 Unknown History Sustenna] Pantoprazole [Protonix TAB] 40 mg PO BID 02/09/21 02/09/21 Unknown History Apixaban [Eliquis] 5 mg PO Q12HR #60 tablet 02/14/21 Unknown Rx Apixaban [Eliquis] 10 mg PO Q12HR #7 tablet 02/14/21 Unknown Rx Ondansetron [Zofran Odt] 4 mg PO Q8HR PRN #20 tab.rapdis 02/25/21 Unknown Rx ED Physical Exam - General Limitations: Altered Mental Status General appearance: alert, in no apparent distress - Head Head exam: Present: atraumatic, normocephalic - Eye Eye exam: Present: normal appearance, EOMI - ENT ENT exam: Present: mucous membranes moist - Neck Neck exam: Present: normal inspection - Respiratory Respiratory exam: Present: normal lung sounds bilaterally. Absent: respiratory distress - Cardiovascular Cardiovascular Exam: Present: normal rhythm, tachycardia - GI/Abdominal GI/Abdominal exam: Present: soft, other (Patient is actively hiccuping). Absent: distended, tenderness - Rectal Rectal exam: Present: heme (+) stool, other (Stool is light brown in color) - Neurological Exam Neurological exam: Present: alert, other (Deficits secondary to CVA; patient only answers yes to questioning) - Psychiatric Psychiatric exam: Present: flat affect - Skin Skin exam: Present: warm, dry, intact, normal color ED Course Vital Signs 02/25/21 02/25/21 02/25/21 13:03 13:14 13:15 Temperature 98.6 F Pulse Rate 110 H 118 H 119 H Respiratory 18 14 Rate Blood Pressure Blood Pressure 126/80 [Left] O2 Sat by Pulse 97 94 92 Oximetry 02/25/21 02/25/21 02/25/21 13:17 13:31 13:45 Temperature 98.6 F Pulse Rate 110 H Respiratory 18 Rate Blood Pressure 126/80 Blood Pressure [Left] O2 Sat by Pulse 97 94 93 Oximetry 02/25/21 02/25/21 02/25/21 14:01 14:16 14:31 Temperature Pulse Rate Respiratory Rate Blood Pressure Blood Pressure [Left] O2 Sat by Pulse 94 93 96 Oximetry 02/25/21 02/25/21 02/25/21 14:45 15:01 15:15 Temperature Pulse Rate Respiratory Rate Blood Pressure Blood Pressure [Left] O2 Sat by Pulse 97 95 94 Oximetry 02/25/21 02/25/21 02/25/21 15:31 15:45 16:00 Temperature Pulse Rate Respiratory Rate Blood Pressure Blood Pressure [Left] O2 Sat by Pulse 94 93 94 Oximetry 02/25/21 02/25/21 02/25/21 16:15 16:31 16:45 Temperature Pulse Rate 114 H 108 H 125 H Respiratory 14 14 18 Rate Blood Pressure Blood Pressure [Left] O2 Sat by Pulse 95 97 95 Oximetry - Consultations Consultation #1: 02/25/21 16:[address] Iglesias, GI, regarding patient. Relayed exam findings, lab results. Informed that the labs seem to be similar to patient's presentation earlier this month. Informed patient's diagnoses of esophagitis and chronic hiccups. States patient does not require scoping or admission. Patient needs to be on long-term PPI. ED Medical Decision Making - Lab Data Result diagrams: 02/25/21 14:32 02/25/21 14:32 - Radiology Data Radiology results: report reviewed, image reviewed - Medical Decision Making 50-year-old male sent to ED for reported coffee-ground emesis. Per detention patient has had vomiting x6 days prior to today. Patient has known history of esophagitis. Patient has not had any episodes of emesis here in the ED. Patient arrived with some mild tachycardia, heart rate in the 110s. However, it was noted that day of discharge last admission, patient was also tachycardic in the 110s. Today, with IV fluids, tachycardia has improved. On exam, patient had light brown stool that was guaiac positive. This is consistent with patient's last rectal exam earlier this month. Patient's hemoglobin is stable at 12.4. Tachycardia may be more related to dehydration from vomiting over the last [address] days than blood loss. [address] abdomen pelvis shows no acute inflammatory or obstructive process. There is some distention of the gallbladder also noted on CT without any evidence of cholecystitis. Patient has no leukocytosis, he is afebrile. Unlikely to be cholecystitis. I have spoken with GI who does not feel patient requires admission at this time. Patient will be discharged back to detention. Outpatient follow-up advised, return precautions given. Critical care attestation.: If time is entered above; I have spent that time in minutes in the direct care of this critically ill patient, excluding procedure time. ED Disposition Clinical Impression: Chronic hiccups, Nausea and vomiting, Esophagitis Disposition: 01 HOME / SELF CARE / HOMELESS Is pt being admited?: No Condition: Stable Referrals: PRIMARY CARE, [Primary Care Provider] - 3-5 Days [facility] [Provider Group] - 3-5 Days Forms: Accompanied Note Time of Disposition: 17:39
[2021-02-25 15:17] LABS: Alanine Aminotransferase 9 units/L (7-56); Albumin 3.3 g/dL (3.9-5); Bilirubin,Direct 0.3 mg/dL (0-0.2); Blood Urea Nitrogen 8 mg/dL (9-20); Calcium 8.8 mg/dL (8.4-10.2); Hemolysis Index 4
[2021-02-25 15:19] LABS: BUN/Creatinine Ratio 16
[2021-02-25] MEDS ORDERED: SODIUM CHLORIDE 0.9% 1000 ML 1,000 ML IV ONE (15:38)
--- NOTE | 2021-02-25 16:59 | Cat Scan Report ---
CT ABDOMEN AND PELVIS WITH IV CONTRAST INDICATION: Nausea and vomiting. TECHNIQUE: Following the administration of intravenous contrast, multiple axial CT images of the abdo men and pelvis were acquired. Sagittal and coronal reformats were obtained. All CT performed at this facility utilize dose reduction techniques including automated exposure control, iterative reconstru ction and weight based dosing when appropriate to reduce patient radiation dose to as low as reasonab ly achievable. COMPARISON: No prior abdominal imaging is available for comparison. FINDINGS: Lung bases: Limited imaging of the bilateral lung bases demonstrates no focal parenchymal abnormality . There is moderate fluid-filled distention of the distal esophagus with circumferential thickening. ABDOMEN: There is moderate distention of the gallbladder without definitive wall thickening. The comm on bile duct also appears mildly prominent measuring 6-7 mm. The liver, spleen, pancreas, bilateral a drenal glands and bilateral kidneys show no evidence of acute abnormality. The abdominal aorta is nor mal in caliber. There is no evidence of bowel obstruction or free fluid. The appendix is visualized a nd appears normal. PELVIS: No free fluid is seen within the pelvis. The urinary bladder appears normal. BONES AND SOFT TISSUES: No significant abnormality. IMPRESSION: 1. No evidence of acute inflammatory or obstructive process within the abdomen or pelvis. 2. Mild to moderate distention of the gallbladder with mild prominence of the common bile duct as joanne cribed without definitive CT evidence for cholecystitis. Please correlate with patient's clinical cir cumstances. 3. Fluid-filled distention of the esophagus with circumferential wall thickening. This could be secon micki to vomiting given the patient's clinical history but is indeterminate. Signer Name: Bambi Garcia MD Signed: 02/25/2021 4:55 PM Workstation Name: [id number]
[2021-02-25] MEDS ORDERED: SODIUM CHLORIDE 0.9% 500 ML 500 ML IV ONE (17:30)
[2021-02-25 19:03] VITALS: BP 110/76
== END 2021-02-25 19:02 | disposition home or self-care (01) ==
LOC: ED 12:50
DX: R11.2 Nausea with vomiting, unspecified (principal); R06.6 Hiccough; K20.90 Esophagitis, unspecified without bleeding; I10 Essential (primary) hypertension; F20.9 Schizophrenia, unspecified; I26.99 Other pulmonary embolism without acute cor pulmonale; Z86.73 Personal history of transient ischemic attack (TIA), and cerebral infarction without residual deficits; Z79.899 Other long term (current) drug therapy
CPT/HCPCS: 36415; 74177; 80048; 80076; 85025; 85610; 85730; 96361; 96374; 96375; 99284; C9113; J2405; J7030; J7040; Q9967